=== PATIENT | female | born 1950 | race Caucasian/White ===

== ENCOUNTER 2019-12-28 09:02 | Inpatient (IN) | payer MEDICARE ==
[~2019-12-28] VITALS: Ht 154.9 cm; Wt 128.3 kg
[2019-12-28] MEDS ORDERED: ceFAZolin SODIUM IV Push 1 GM VIAL. IVP STA (09:20)
--- NOTE | 2019-12-28 09:27 | PHYS DOC ---
Adult General HPI HPI Patient is a 69 year old female who presents with R leg swelling and erythema that has been ongoing and progressively getting worse over the last several weeks. The patient has been having difficulty walking and denies fever, nausea, vomiting, or diarrhea. The patient states that her pain goes from 8 out of 10 down to 0 intermittently. The patient is a type II diabetic. Review of Systems Review of Systems Constitutional: Denies fever or chills [] Eyes: Denies change in visual acuity, redness, or eye pain [] HENT: Denies nasal congestion or sore throat [] Respiratory: Denies cough or shortness of breath [] Cardiovascular: No additional information not addressed in HPI [] GI: Denies abdominal pain, nausea, vomiting, bloody stools or diarrhea [] : Denies dysuria or hematuria [] Musculoskeletal: Denies back pain or joint pain [] Integument: Reports swelling to R leg with redness and pain. Neurologic: Denies headache, focal weakness or sensory changes [] Endocrine: Denies polyuria or polydipsia [] Complete systems were reviewed and found to be within normal limits, except as documented in this note. Current Medications Current Medications Current Medications Medications (Trade) Dose Ordered Sig/Mae Start Time Stop Time Status Last Admin Dose Admin Cefazolin Sodium (Ancef) 1 gm 1X STAT 12/28/19 09:20 12/28/19 10:13 DC 12/28/19 11:14 1 GM Allergies Allergies Allergies Coded Allergies Type Severity Reaction Last Updated Verified Penicillins Allergy Intermediate Itching 12/28/19 Yes sulfamethoxazole Allergy Intermediate "UPSET STOMACH" 12/28/19 Yes trimethoprim Allergy Intermediate "UPSET STOMACH" 12/28/19 Yes Physical Exam Physical Exam Constitutional: Well developed, well nourished, no acute distress, non-toxic appearance. [] HENT: Normocephalic, atraumatic, bilateral external ears normal, oropharynx moist, no oral exudates, nose normal. [] Eyes: PERRLA, EOMI, conjunctiva normal, no discharge. [] Neck: Normal range of motion, no tenderness, supple, no stridor. [] Cardiovascular:Heart rate regular rhythm, no murmur [] Lungs & Thorax: Bilateral breath sounds clear to auscultation [] Abdomen: Bowel sounds normal, soft, no tenderness, no masses, no pulsatile masses. [] Skin: See Note under extremities. Extremities: Severe edema to right lower extremity, with erythema posterior to knee, and distal on leg. Tenderness with palpation, pedal pulse is 1+. Neurologic: Alert and oriented X 3, normal motor function, normal sensory function, no focal deficits noted. [] Psychologic: Affect normal, judgement normal, mood normal. [] Current Patient Data Vital Signs Vital Signs Date Time Temp Pulse Resp B/P (MAP) Pulse Ox O2 Delivery O2 Flow Rate FiO2 12/28/19 09:08 98.9 95 20 192/74 (113) 97 Room Air 98.9 Lab Values Laboratory Tests Test 12/28/19 10:40 White Blood Count 7.6 x10^3/uL (4.0-11.0) Red Blood Count 3.47 x10^6/uL (3.50-5.40) L Hemoglobin 11.1 g/dL (12.0-15.5) L Hematocrit 32.4 % (36.0-47.0) L Mean Corpuscular Volume 93 fL (79-100) Mean Corpuscular Hemoglobin 32 pg (25-35) Mean Corpuscular Hemoglobin Concent 34 g/dL (31-37) Red Cell Distribution Width 15.4 % (11.5-14.5) H Platelet Count 150 x10^3/uL (140-400) Neutrophils (%) (Auto) 73 % (31-73) Lymphocytes (%) (Auto) 13 % (24-48) L Monocytes (%) (Auto) 13 % (0-9) H Eosinophils (%) (Auto) 1 % (0-3) Basophils (%) (Auto) 1 % (0-3) Neutrophils # (Auto) 5.6 x10^3/uL (1.8-7.7) Lymphocytes # (Auto) 1.0 x10^3/uL (1.0-4.8) Monocytes # (Auto) 0.9 x10^3/uL (0.0-1.1) Eosinophils # (Auto) 0.0 x10^3/uL (0.0-0.7) Basophils # (Auto) 0.0 x10^3/uL (0.0-0.2) Sodium Level 139 mmol/L (136-145) Potassium Level 3.5 mmol/L (3.5-5.1) Chloride Level 105 mmol/L (98-107) Carbon Dioxide Level 24 mmol/L (21-32) Anion Gap 10 (6-14) Blood Urea Nitrogen 27 mg/dL (7-20) H Creatinine 1.4 mg/dL (0.6-1.0) H Estimated GFR (Cockcroft-Gault) 37.1 BUN/Creatinine Ratio 19 (6-20) Glucose Level 155 mg/dL (70-99) H Lactic Acid Level 1.8 mmol/L (0.4-2.0) Calcium Level 8.4 mg/dL (8.5-10.1) L Total Bilirubin 1.8 mg/dL (0.2-1.0) H Aspartate Amino Transferase (AST) 40 U/L (15-37) H Alanine Aminotransferase (ALT) 25 U/L (14-59) Alkaline Phosphatase 67 U/L (46-116) Total Protein 6.1 g/dL (6.4-8.2) L Albumin 2.7 g/dL (3.4-5.0) L Albumin/Globulin Ratio 0.8 (1.0-1.7) L Laboratory Tests 12/28/19 10:40 Laboratory Tests 12/28/19 10:40 EKG EKG [] Radiology/Procedures Radiology/Procedures [][facility] [address] [place], [place] [id number] IMAGING REPORT Signed PATIENT: YESSY ROCHA ACCOUNT: [id number] : 1950 LOCATION: ER AGE: 69 SEX: F EXAM STATUS: REG ER ORD. PHYSICIAN: SHELBY CAR APRN REASON: R leg edema PROCEDURE: VENOUS LOWER EXTREMITY RIGHT Right lower extremity venous doppler ultrasound History: Right leg edema Comparison: None Findings: Multiple grayscale, color, and duplex spectral analysis sonographic images were acquired of the right lower extremity veins to evaluate for the presence of DVT. Exam is limited due to patient's body habitus. No convincing thrombus is demonstrated, normal color flow and phasicity. Compression images are very limited. There is edema of the soft tissues. Impression: 1. There is no convincing evidence of deep venous thrombosis from the right common femoral to the popliteal veins, exam limited due to patient's body habitus. Electronically signed by: Manjinder Clifford MD (12/28/2019 10:00 AM) [id number] DICTATED and SIGNED BY: MANJINDER CLIFFORD MD DATE: 12/28/19 1000 Course & Med Decision Making Course & Med Decision Making Pertinent Labs and Imaging studies reviewed. (See chart for details) Will get labs, ultrasound, and give Cefazolin. Ultrasound is unremarkable. Labs shows no acute changes. Will admit to hospitalist for cellulitis. Dr. Andrade agrees to admission. Dragon Disclaimer Dragon Disclaimer This electronic medical record was generated, in whole or in part, using a voice recognition dictation system. Departure Departure Impression: Primary Impression: Cellulitis Additional Impression: Acquired lymphedema of lower extremity Disposition: 09 ADMITTED INPATIENT Admitting Physician: KIMBERLY Condition: STABLE Referrals: UNKNOWN PCP NAME (PCP) Problem Qualifiers Primary Impression: Cellulitis Site of cellulitis: extremity Site of cellulitis of extremity: lower extremity Laterality: right Qualified Codes: L03.115 - Cellulitis of right lower limb SHELBY CAR APRN Dec 28, 2019 09:27
--- NOTE | 2019-12-28 10:02 | RAD ---
Right lower extremity venous doppler ultrasound History: Right leg edema Comparison: None Findings: Multiple grayscale, color, and duplex spectral analysis sonographic images were acquired of the right lower extremity veins to evaluate for the presence of DVT. Exam is limited due to patient's body habitus. No convincing thrombus is demonstrated, normal color flow and phasicity. Compression images are very limited. There is edema of the soft tissues. Impression: 1. There is no convincing evidence of deep venous thrombosis from the right common femoral to the popliteal veins, exam limited due to patient's body habitus. Electronically signed by: Hipolito Bai MD (12/28/2019 10:00 AM) [id number]
[2019-12-28 10:47] LABS: BASO % 1 % (0-3); EOS % 1 % (0-3); HEMATOCRIT 32.4 % (36.0-47.0); HEMOGLOBIN 11.1 g/dL (12.0-15.5); LYMPH % 13 % (24-48); MEAN CORPUSCULAR HEMOGLOBIN 32 pg (25-35); MEAN CORPUSCULAR HGB CONC 34 g/dL (31-37); MEAN CORPUSCULAR VOLUME 93 fL (79-100); MONO # 0.9 x10^3/uL (0.0-1.1); MONO % 13 % (0-9); NEUT # 5.6 x10^3/uL (1.8-7.7); NEUT % 73 % (31-73); PLATELET COUNT 150 x10^3/uL (140-400); RED BLOOD COUNT 3.47 x10^6/uL (3.50-5.40); RED CELL DISTRIBUTION WIDTH 15.4 % (11.5-14.5); WHITE BLOOD COUNT 7.6 x10^3/uL (4.0-11.0)
[2019-12-28 11:46] LABS: CALCIUM 8.4 mg/dL (8.5-10.1); CREATININE 1.4 mg/dL (0.6-1.0); GFR 37.1; POTASSIUM 3.5 mmol/L (3.5-5.1)
[2019-12-28 11:52] LABS: ALBUMIN 2.7 g/dL (3.4-5.0); ALBUMIN/GLOBULIN RATIO 0.8 (1.0-1.7); TOTAL BILIRUBIN 1.8 mg/dL (0.2-1.0); TOTAL PROTEIN 6.1 g/dL (6.4-8.2)
--- NOTE | 2019-12-28 12:23 | PDOC1 ---
History and Physical Date of Admission Date of Admission DATE: 12/28/19 TIME: 12:21 Identification/Chief Complaint Chief Complaint SEEN IN ER , 69 year old female who presents with R leg swelling and erythema that has been ongoing and progressively getting worse over the last several weeks. The patient has been having difficulty walking and denies fever, US NEG FOR DVT, LEFT LE HAS compression wrap in place, dry Past Medical History Past Medical History OBESITY Cardiovascular: HTN Family History Family History OBESITY Social History Smoke: No ALCOHOL: none Drugs: None Current Problem List Problem List Problems Medical Problems: (1) Acquired lymphedema of lower extremity Status: Acute (2) Cellulitis Status: Acute Current Medications Current Medications Current Medications Cefazolin Sodium (Ancef) 1 gm 1X STAT IVP Last administered on 12/28/19at 11:14; Start 12/28/19 at 09:20; Stop 12/28/19 at 10:13; Status DC Allergies Allergies: Coded Allergies: Penicillins (Verified Allergy, Intermediate, Itching, 12/28/19) sulfamethoxazole (Verified Allergy, Intermediate, "UPSET STOMACH" , 12/28/19) trimethoprim (Verified Allergy, Intermediate, "UPSET STOMACH" , 12/28/19) ROS Review of System Review of Systems Review of Systems Constitutional: Denies fever or chills [] Eyes: Denies change in visual acuity, redness, or eye pain [] HENT: Denies nasal congestion or sore throat [] Respiratory: Denies cough or shortness of breath [] Cardiovascular: No additional information not addressed in HPI [] GI: Denies abdominal pain, nausea, vomiting, bloody stools or diarrhea [] : Denies dysuria or hematuria [] Musculoskeletal: Denies back pain or joint pain [] Integument: Reports swelling to R leg with redness and pain. Neurologic: Denies headache, focal weakness or sensory changes [] Endocrine: Denies polyuria or polydipsia [] 14 PT systems were reviewed and found to be within normal limits, except as documented Gastrointestinal: No Nausea, No Vomiting, No Abdominal Pain, No Diarrhea, No Constipation, No Melena, No Hematochezia, No Other Musculoskeletal: Yes Joint Stiffness Skin: Yes Skin Lesion Changes Physical Exam Physical Exam Physical Exam Physical Exam Constitutional: Well developed, well nourished, no acute distress, non-toxic appearance. [] HENT: Normocephalic, atraumatic, bilateral external ears normal, oropharynx moist, no oral exudates, nose normal. [] Eyes: PERRLA, EOMI, conjunctiva normal, no discharge. [] Neck: Normal range of motion, no tenderness, supple, no stridor. [] Cardiovascular:Heart rate regular rhythm, no murmur [] Lungs & Thorax: Bilateral breath sounds clear to auscultation [] Abdomen: Bowel sounds normal, soft, no tenderness, no masses, no pulsatile masses. [] Skin: See Note under extremities. Extremities: Severe edema to right lower extremity, with erythema posterior to knee, and distal on leg. Tenderness with palpation, pedal pulse is 1+. Neurologic: Alert and oriented X 3, normal motor function, normal sensory function, no focal deficits noted. [] Psychologic: Affect normal, judgement normal, mood normal. [] General: Alert, Oriented X3, Cooperative, No acute distress HEENT: Atraumatic Heart: RRR Breasts: Not examined Abdomen: Normal bowel sounds, Soft Rectal Exam: deferred PELVIC: Examination not indicated Extremities: No cyanosis Neuro: Normal speech, Cranial nerves 3-12 NL Psych/Mental Status: Mental status NL, Mood NL Vitals Vitals Vital Signs Date Time Temp Pulse Resp B/P (MAP) Pulse Ox O2 Delivery O2 Flow Rate FiO2 12/28/19 09:08 98.9 95 20 192/74 (113) 97 Room Air 98.9 Labs Labs Laboratory Tests Test 12/28/19 10:40 White Blood Count 7.6 x10^3/uL (4.0-11.0) Red Blood Count 3.47 x10^6/uL (3.50-5.40) Hemoglobin 11.1 g/dL (12.0-15.5) Hematocrit 32.4 % (36.0-47.0) Mean Corpuscular Volume 93 fL (79-100) Mean Corpuscular Hemoglobin 32 pg (25-35) Mean Corpuscular Hemoglobin Concent 34 g/dL (31-37) Red Cell Distribution Width 15.4 % (11.5-14.5) Platelet Count 150 x10^3/uL (140-400) Neutrophils (%) (Auto) 73 % (31-73) Lymphocytes (%) (Auto) 13 % (24-48) Monocytes (%) (Auto) 13 % (0-9) Eosinophils (%) (Auto) 1 % (0-3) Basophils (%) (Auto) 1 % (0-3) Neutrophils # (Auto) 5.6 x10^3/uL (1.8-7.7) Lymphocytes # (Auto) 1.0 x10^3/uL (1.0-4.8) Monocytes # (Auto) 0.9 x10^3/uL (0.0-1.1) Eosinophils # (Auto) 0.0 x10^3/uL (0.0-0.7) Basophils # (Auto) 0.0 x10^3/uL (0.0-0.2) Sodium Level 139 mmol/L (136-145) Potassium Level 3.5 mmol/L (3.5-5.1) Chloride Level 105 mmol/L (98-107) Carbon Dioxide Level 24 mmol/L (21-32) Anion Gap 10 (6-14) Blood Urea Nitrogen 27 mg/dL (7-20) Creatinine 1.4 mg/dL (0.6-1.0) Estimated GFR (Cockcroft-Gault) 37.1 BUN/Creatinine Ratio 19 (6-20) Glucose Level 155 mg/dL (70-99) Lactic Acid Level 1.8 mmol/L (0.4-2.0) Calcium Level 8.4 mg/dL (8.5-10.1) Total Bilirubin 1.8 mg/dL (0.2-1.0) Aspartate Amino Transf (AST/SGOT) 40 U/L (15-37) Alanine Aminotransferase (ALT/SGPT) 25 U/L (14-59) Alkaline Phosphatase 67 U/L (46-116) Total Protein 6.1 g/dL (6.4-8.2) Albumin 2.7 g/dL (3.4-5.0) Albumin/Globulin Ratio 0.8 (1.0-1.7) Laboratory Tests Test 12/28/19 10:40 White Blood Count 7.6 x10^3/uL (4.0-11.0) Red Blood Count 3.47 x10^6/uL (3.50-5.40) Hemoglobin 11.1 g/dL (12.0-15.5) Hematocrit 32.4 % (36.0-47.0) Mean Corpuscular Volume 93 fL (79-100) Mean Corpuscular Hemoglobin 32 pg (25-35) Mean Corpuscular Hemoglobin Concent 34 g/dL (31-37) Red Cell Distribution Width 15.4 % (11.5-14.5) Platelet Count 150 x10^3/uL (140-400) Neutrophils (%) (Auto) 73 % (31-73) Lymphocytes (%) (Auto) 13 % (24-48) Monocytes (%) (Auto) 13 % (0-9) Eosinophils (%) (Auto) 1 % (0-3) Basophils (%) (Auto) 1 % (0-3) Neutrophils # (Auto) 5.6 x10^3/uL (1.8-7.7) Lymphocytes # (Auto) 1.0 x10^3/uL (1.0-4.8) Monocytes # (Auto) 0.9 x10^3/uL (0.0-1.1) Eosinophils # (Auto) 0.0 x10^3/uL (0.0-0.7) Basophils # (Auto) 0.0 x10^3/uL (0.0-0.2) Sodium Level 139 mmol/L (136-145) Potassium Level 3.5 mmol/L (3.5-5.1) Chloride Level 105 mmol/L (98-107) Carbon Dioxide Level 24 mmol/L (21-32) Anion Gap 10 (6-14) Blood Urea Nitrogen 27 mg/dL (7-20) Creatinine 1.4 mg/dL (0.6-1.0) Estimated GFR (Cockcroft-Gault) 37.1 BUN/Creatinine Ratio 19 (6-20) Glucose Level 155 mg/dL (70-99) Lactic Acid Level 1.8 mmol/L (0.4-2.0) Calcium Level 8.4 mg/dL (8.5-10.1) Total Bilirubin 1.8 mg/dL (0.2-1.0) Aspartate Amino Transf (AST/SGOT) 40 U/L (15-37) Alanine Aminotransferase (ALT/SGPT) 25 U/L (14-59) Alkaline Phosphatase 67 U/L (46-116) Total Protein 6.1 g/dL (6.4-8.2) Albumin 2.7 g/dL (3.4-5.0) Albumin/Globulin Ratio 0.8 (1.0-1.7) Images Images Right lower extremity venous doppler ultrasound History: Right leg edema Comparison: None Findings: Multiple grayscale, color, and duplex spectral analysis sonographic images were acquired of the right lower extremity veins to evaluate for the presence of DVT. Exam is limited due to patient's body habitus. No convincing thrombus is demonstrated, normal color flow and phasicity. Compression images are very limited. There is edema of the soft tissues. Impression: 1. There is no convincing evidence of deep venous thrombosis from the right common femoral to the popliteal veins, exam limited due to patient's body habitus. Electronically signed by: Manjinder Clifford MD (12/28/2019 10:00 AM) [id number] DICTATED and SIGNED BY: MANJINDER CLIFFORD MD DATE: 12/28/19 1000 VTE Prophylaxis Ordered VTE Prophylaxis Devices: Contraindicated VTE Pharmacological Prophylaxi: Yes Assessment/Plan Assessment/Plan Impression: krystyna: Cellulitis right lower leg, ankle obesity Acquired lymphedema of lower extremity///no convincing evidence of deep venous thrombosis from the right common femoral to the popliteal veins, exam limited due to patient's body habitus. severe protein-caloric malnutrition CKD stage 3 ADMITTED iv antibiotics ANCEF 1 GM Q 8 HRS dvt prophylaxis ID CONSULT AMBAR PARSONS MD Dec 28, 2019 12:23
[2019-12-28] MEDS ORDERED: fentaNYL PF VIAL 100 MCG/2 ML VIAL IV PRN (12:30)
[2019-12-28] MEDS ORDERED: ONDANSETRON PF 4 MG/2 ML VIAL. IV PRN ×2 (12:30→13:15)
[2019-12-28] MEDS ORDERED: ACETAMINOPHEN 325 MG TABLET. PO PRN (13:15)
[2019-12-28] MEDS ORDERED: ALBUTEROL SULFATE 2.5 MG/3 ML NEBU. NEB PRN (13:15)
[2019-12-28] MEDS ORDERED: guaiFENesin ORAL 200 MG/10 ML LIQUID. PO PRN (13:15)
[2019-12-28] MEDS ORDERED: cloNIDine HCL 0.1 MG TABLET PO PRN (13:15)
[2019-12-28] MEDS ORDERED: DOCUSATE SODIUM 100 MG CAPSULE. PO PRN (13:15)
[2019-12-28] MEDS ORDERED: 0.9 % SODIUM CHLORIDE 10 ML DISP.SYRIN. IV PRN (13:15)
[2019-12-28] MEDS ORDERED: ceFAZolin SODIUM IV Push 1 GM VIAL. IVP SCH (14:00)
[2019-12-28] MEDS: IV NORMAL SALINE 1000ML BAG 1,000 ML IV SCH (14:50)
[2019-12-28] MEDS: ENOXAPARIN 40 MG/0.4 ML SYRINGE. SQ SCH (14:50)
[2019-12-28 19:25] VITALS: BP 109/46
[2019-12-28] MEDS: NYSTATIN TOPICAL POWDER 15GM BOTTLE. TP SCH (22:37)
[2019-12-28] MEDS: ceFAZolin SODIUM IV Push 1 GM VIAL. IVP SCH (22:38)
[2019-12-28 23:25] VITALS: BP 122/50
[2019-12-29 03:25] VITALS: BP 115/52
[2019-12-29] MEDS: IV NORMAL SALINE 1000ML BAG 1,000 ML IV SCH ×2 (03:40→16:48)
[2019-12-29 04:59] LABS: BILIRUBIN,URINE NEGATIVE (NEG); CLARITY,URINE CLEAR; COLOR,URINE YELLOW; NITRITE,URINE NEGATIVE (NEG); PH,URINE 5.5; PROTEIN,URINE NEGATIVE (NEG-TRACE); UROBILINOGEN,URINE 0.2 mg/dL (0.2 mg/dL)
[2019-12-29 05:03] LABS: SQUAMOUS EPITHELIAL CELL,UR MOD /LPF
[2019-12-29 05:04] LABS: BACTERIA,URINE FEW /HPF (0-FEW); RBC,URINE 0 /HPF (0-2)
[2019-12-29] MEDS: ceFAZolin SODIUM IV Push 1 GM VIAL. IVP SCH (05:45)
[2019-12-29 07:00] VITALS: BP 114/52
[2019-12-29 07:32] LABS: BASO % 1 % (0-3); EOS # 0.2 x10^3/uL (0.0-0.7); EOS % 4 % (0-3); HEMATOCRIT 29.2 % (36.0-47.0); LYMPH % 21 % (24-48); MEAN CORPUSCULAR HEMOGLOBIN 32 pg (25-35); MEAN CORPUSCULAR HGB CONC 34 g/dL (31-37); MEAN CORPUSCULAR VOLUME 94 fL (79-100); MONO # 0.6 x10^3/uL (0.0-1.1); MONO % 13 % (0-9); NEUT # 3.1 x10^3/uL (1.8-7.7); NEUT % 62 % (31-73); PLATELET COUNT 127 x10^3/uL (140-400); RED BLOOD COUNT 3.12 x10^6/uL (3.50-5.40); RED CELL DISTRIBUTION WIDTH 15.5 % (11.5-14.5); WHITE BLOOD COUNT 4.9 x10^3/uL (4.0-11.0)
[2019-12-29 07:46] LABS: CALCIUM 7.7 mg/dL (8.5-10.1); CREATININE 1.2 mg/dL (0.6-1.0); GFR 44.3; POTASSIUM 3.3 mmol/L (3.5-5.1)
[2019-12-29] MEDS: NYSTATIN TOPICAL POWDER 15GM BOTTLE. TP SCH ×2 (08:03→21:36)
--- NOTE | 2019-12-29 10:52 | PDOC ---
Infectious Disease Note Vital Sign Vital Signs Vital Signs Date Time Temp Pulse Resp B/P (MAP) Pulse Ox O2 Delivery O2 Flow Rate FiO2 12/29/19 08:10 Room Air 12/29/19 07:00 97.5 82 16 114/52 (72) 95 97.5 Labs Lab Laboratory Tests Test 12/28/19 17:57 12/28/19 20:53 12/29/19 04:30 12/29/19 06:20 Glucose (Fingerstick) 161 mg/dL (70-99) 150 mg/dL (70-99) Urine Collection Type Unknown Urine Color Yellow Urine Clarity Clear Urine pH 5.5 Urine Specific [place] 1.020 Urine Protein Negative mg/dL (NEG-TRACE) Urine Glucose (UA) >=1000 mg/dL (NEG) Urine Ketones (Stick) Negative mg/dL (NEG) Urine Blood Negative (NEG) Urine Nitrite Negative (NEG) Urine Bilirubin Negative (NEG) Urine Urobilinogen Dipstick 0.2 mg/dL (0.2 mg/dL) Urine Leukocyte Esterase Small (NEG) Urine RBC 0 /HPF (0-2) Urine WBC 1-4 /HPF (0-4) Urine Squamous Epithelial Cells Mod /LPF Urine Bacteria Few /HPF (0-FEW) Urine Mucus Slight /LPF White Blood Count 4.9 x10^3/uL (4.0-11.0) Red Blood Count 3.12 x10^6/uL (3.50-5.40) Hemoglobin 10.0 g/dL (12.0-15.5) Hematocrit 29.2 % (36.0-47.0) Mean Corpuscular Volume 94 fL (79-100) Mean Corpuscular Hemoglobin 32 pg (25-35) Mean Corpuscular Hemoglobin Concent 34 g/dL (31-37) Red Cell Distribution Width 15.5 % (11.5-14.5) Platelet Count 127 x10^3/uL (140-400) Neutrophils (%) (Auto) 62 % (31-73) Lymphocytes (%) (Auto) 21 % (24-48) Monocytes (%) (Auto) 13 % (0-9) Eosinophils (%) (Auto) 4 % (0-3) Basophils (%) (Auto) 1 % (0-3) Neutrophils # (Auto) 3.1 x10^3/uL (1.8-7.7) Lymphocytes # (Auto) 1.0 x10^3/uL (1.0-4.8) Monocytes # (Auto) 0.6 x10^3/uL (0.0-1.1) Eosinophils # (Auto) 0.2 x10^3/uL (0.0-0.7) Basophils # (Auto) 0.0 x10^3/uL (0.0-0.2) Sodium Level 143 mmol/L (136-145) Potassium Level 3.3 mmol/L (3.5-5.1) Chloride Level 110 mmol/L (98-107) Carbon Dioxide Level 26 mmol/L (21-32) Anion Gap 7 (6-14) Blood Urea Nitrogen 25 mg/dL (7-20) Creatinine 1.2 mg/dL (0.6-1.0) Estimated GFR (Cockcroft-Gault) 44.3 Glucose Level 133 mg/dL (70-99) Calcium Level 7.7 mg/dL (8.5-10.1) Test 12/29/19 07:51 Glucose (Fingerstick) 118 mg/dL (70-99) Objective Assessment LE cellulitis R> Left Abx allergies - PCN - rash uncertain if had Amox/Bactrim - nausea H/o MSSA Yeast in groin and feet Abnormal UA - asymptomatic Cat exposure LE Lymphedema RASTA Morbid obesity Plan Plan of Care Discont Cefazolin dose Rocephin Dose Doxy/Diflucan F/u Urine cult but ? contaminated Elevation and local wound care Thank you # [id number] SKIP FARIAS MD Dec 29, 2019 10:52
[2019-12-29] MEDS: cefTRIAXone IV Push 1 GM VIAL. IVP SCH (11:00)
[2019-12-29] MEDS: DOXYCYCLINE HYCLATE 100 MG TABLET PO SCH ×2 (11:14→21:36)
[2019-12-29] MEDS: FLUCONAZOLE 100 MG TABLET. PO SCH (11:14)
--- NOTE | 2019-12-29 11:52 | NUR ---
SW following. Discussed with RN, pt from home alone. Per RN, pt has not moved much today. PT/OT ordered. SW will continue to follow for any discharge planning needs.
[2019-12-29 12:00] VITALS: BP 106/47
--- NOTE | 2019-12-29 13:02 | PDOC ---
PROGRESS NOTES Chief Complaint Chief Complaint sepsis acute Cellulitis right lower leg, ankle morbid obesity , BMI 44 Acquired lymphedema of lower extremity/ serum hypoalbumin, protein-caloric malnutrition CKD stage 3 History of Present Illness History of Present Illness ID following abx changed she is very weak pt and ot and lymphedema therapy Vitals Vitals Vital Signs Date Time Temp Pulse Resp B/P (MAP) Pulse Ox O2 Delivery O2 Flow Rate FiO2 12/29/19 12:00 99.9 83 16 106/47 (66) 96 Room Air 99.9 Physical Exam General: Alert, Oriented X3, Cooperative, No acute distress Abdomen: Normal bowel sounds, Soft Extremities: No cyanosis Labs LABS Laboratory Tests Test 12/28/19 17:57 12/28/19 20:53 12/29/19 04:30 12/29/19 06:20 Glucose (Fingerstick) 161 mg/dL (70-99) 150 mg/dL (70-99) Urine Collection Type Unknown Urine Color Yellow Urine Clarity Clear Urine pH 5.5 Urine Specific Elmer 1.020 Urine Protein Negative mg/dL (NEG-TRACE) Urine Glucose (UA) >=1000 mg/dL (NEG) Urine Ketones (Stick) Negative mg/dL (NEG) Urine Blood Negative (NEG) Urine Nitrite Negative (NEG) Urine Bilirubin Negative (NEG) Urine Urobilinogen Dipstick 0.2 mg/dL (0.2 mg/dL) Urine Leukocyte Esterase Small (NEG) Urine RBC 0 /HPF (0-2) Urine WBC 1-4 /HPF (0-4) Urine Squamous Epithelial Cells Mod /LPF Urine Bacteria Few /HPF (0-FEW) Urine Mucus Slight /LPF White Blood Count 4.9 x10^3/uL (4.0-11.0) Red Blood Count 3.12 x10^6/uL (3.50-5.40) Hemoglobin 10.0 g/dL (12.0-15.5) Hematocrit 29.2 % (36.0-47.0) Mean Corpuscular Volume 94 fL (79-100) Mean Corpuscular Hemoglobin 32 pg (25-35) Mean Corpuscular Hemoglobin Concent 34 g/dL (31-37) Red Cell Distribution Width 15.5 % (11.5-14.5) Platelet Count 127 x10^3/uL (140-400) Neutrophils (%) (Auto) 62 % (31-73) Lymphocytes (%) (Auto) 21 % (24-48) Monocytes (%) (Auto) 13 % (0-9) Eosinophils (%) (Auto) 4 % (0-3) Basophils (%) (Auto) 1 % (0-3) Neutrophils # (Auto) 3.1 x10^3/uL (1.8-7.7) Lymphocytes # (Auto) 1.0 x10^3/uL (1.0-4.8) Monocytes # (Auto) 0.6 x10^3/uL (0.0-1.1) Eosinophils # (Auto) 0.2 x10^3/uL (0.0-0.7) Basophils # (Auto) 0.0 x10^3/uL (0.0-0.2) Sodium Level 143 mmol/L (136-145) Potassium Level 3.3 mmol/L (3.5-5.1) Chloride Level 110 mmol/L (98-107) Carbon Dioxide Level 26 mmol/L (21-32) Anion Gap 7 (6-14) Blood Urea Nitrogen 25 mg/dL (7-20) Creatinine 1.2 mg/dL (0.6-1.0) Estimated GFR (Cockcroft-Gault) 44.3 Glucose Level 133 mg/dL (70-99) Calcium Level 7.7 mg/dL (8.5-10.1) Test 12/29/19 07:51 12/29/19 11:42 Glucose (Fingerstick) 118 mg/dL (70-99) 175 mg/dL (70-99) Assessment and Plan Assessmemt and Plan Problems Medical Problems: (1) Acquired lymphedema of lower extremity Status: Acute (2) Cellulitis Status: Acute Comment Review of Relevant I have reviewed the following items ayden (where applicable) has been applied. Labs Laboratory Tests Test 12/28/19 10:40 12/28/19 17:57 12/28/19 20:53 12/29/19 04:30 White Blood Count 7.6 x10^3/uL (4.0-11.0) Red Blood Count 3.47 x10^6/uL (3.50-5.40) Hemoglobin 11.1 g/dL (12.0-15.5) Hematocrit 32.4 % (36.0-47.0) Mean Corpuscular Volume 93 fL (79-100) Mean Corpuscular Hemoglobin 32 pg (25-35) Mean Corpuscular Hemoglobin Concent 34 g/dL (31-37) Red Cell Distribution Width 15.4 % (11.5-14.5) Platelet Count 150 x10^3/uL (140-400) Neutrophils (%) (Auto) 73 % (31-73) Lymphocytes (%) (Auto) 13 % (24-48) Monocytes (%) (Auto) 13 % (0-9) Eosinophils (%) (Auto) 1 % (0-3) Basophils (%) (Auto) 1 % (0-3) Neutrophils # (Auto) 5.6 x10^3/uL (1.8-7.7) Lymphocytes # (Auto) 1.0 x10^3/uL (1.0-4.8) Monocytes # (Auto) 0.9 x10^3/uL (0.0-1.1) Eosinophils # (Auto) 0.0 x10^3/uL (0.0-0.7) Basophils # (Auto) 0.0 x10^3/uL (0.0-0.2) Sodium Level 139 mmol/L (136-145) Potassium Level 3.5 mmol/L (3.5-5.1) Chloride Level 105 mmol/L (98-107) Carbon Dioxide Level 24 mmol/L (21-32) Anion Gap 10 (6-14) Blood Urea Nitrogen 27 mg/dL (7-20) Creatinine 1.4 mg/dL (0.6-1.0) Estimated GFR (Cockcroft-Gault) 37.1 BUN/Creatinine Ratio 19 (6-20) Glucose Level 155 mg/dL (70-99) Lactic Acid Level 1.8 mmol/L (0.4-2.0) Calcium Level 8.4 mg/dL (8.5-10.1) Total Bilirubin 1.8 mg/dL (0.2-1.0) Aspartate Amino Transf (AST/SGOT) 40 U/L (15-37) Alanine Aminotransferase (ALT/SGPT) 25 U/L (14-59) Alkaline Phosphatase 67 U/L (46-116) Total Protein 6.1 g/dL (6.4-8.2) Albumin 2.7 g/dL (3.4-5.0) Albumin/Globulin Ratio 0.8 (1.0-1.7) Glucose (Fingerstick) 161 mg/dL (70-99) 150 mg/dL (70-99) Urine Collection Type Unknown Urine Color Yellow Urine Clarity Clear Urine pH 5.5 Urine Specific Elmer 1.020 Urine Protein Negative mg/dL (NEG-TRACE) Urine Glucose (UA) >=1000 mg/dL (NEG) Urine Ketones (Stick) Negative mg/dL (NEG) Urine Blood Negative (NEG) Urine Nitrite Negative (NEG) Urine Bilirubin Negative (NEG) Urine Urobilinogen Dipstick 0.2 mg/dL (0.2 mg/dL) Urine Leukocyte Esterase Small (NEG) Urine RBC 0 /HPF (0-2) Urine WBC 1-4 /HPF (0-4) Urine Squamous Epithelial Cells Mod /LPF Urine Bacteria Few /HPF (0-FEW) Urine Mucus Slight /LPF Test 12/29/19 06:20 12/29/19 07:51 12/29/19 11:42 White Blood Count 4.9 x10^3/uL (4.0-11.0) Red Blood Count 3.12 x10^6/uL (3.50-5.40) Hemoglobin 10.0 g/dL (12.0-15.5) Hematocrit 29.2 % (36.0-47.0) Mean Corpuscular Volume 94 fL (79-100) Mean Corpuscular Hemoglobin 32 pg (25-35) Mean Corpuscular Hemoglobin Concent 34 g/dL (31-37) Red Cell Distribution Width 15.5 % (11.5-14.5) Platelet Count 127 x10^3/uL (140-400) Neutrophils (%) (Auto) 62 % (31-73) Lymphocytes (%) (Auto) 21 % (24-48) Monocytes (%) (Auto) 13 % (0-9) Eosinophils (%) (Auto) 4 % (0-3) Basophils (%) (Auto) 1 % (0-3) Neutrophils # (Auto) 3.1 x10^3/uL (1.8-7.7) Lymphocytes # (Auto) 1.0 x10^3/uL (1.0-4.8) Monocytes # (Auto) 0.6 x10^3/uL (0.0-1.1) Eosinophils # (Auto) 0.2 x10^3/uL (0.0-0.7) Basophils # (Auto) 0.0 x10^3/uL (0.0-0.2) Sodium Level 143 mmol/L (136-145) Potassium Level 3.3 mmol/L (3.5-5.1) Chloride Level 110 mmol/L (98-107) Carbon Dioxide Level 26 mmol/L (21-32) Anion Gap 7 (6-14) Blood Urea Nitrogen 25 mg/dL (7-20) Creatinine 1.2 mg/dL (0.6-1.0) Estimated GFR (Cockcroft-Gault) 44.3 Glucose Level 133 mg/dL (70-99) Calcium Level 7.7 mg/dL (8.5-10.1) Glucose (Fingerstick) 118 mg/dL (70-99) 175 mg/dL (70-99) Laboratory Tests Test 12/28/19 17:57 12/28/19 20:53 12/29/19 04:30 12/29/19 06:20 Glucose (Fingerstick) 161 mg/dL (70-99) 150 mg/dL (70-99) Urine Collection Type Unknown Urine Color Yellow Urine Clarity Clear Urine pH 5.5 Urine Specific Elmer 1.020 Urine Protein Negative mg/dL (NEG-TRACE) Urine Glucose (UA) >=1000 mg/dL (NEG) Urine Ketones (Stick) Negative mg/dL (NEG) Urine Blood Negative (NEG) Urine Nitrite Negative (NEG) Urine Bilirubin Negative (NEG) Urine Urobilinogen Dipstick 0.2 mg/dL (0.2 mg/dL) Urine Leukocyte Esterase Small (NEG) Urine RBC 0 /HPF (0-2) Urine WBC 1-4 /HPF (0-4) Urine Squamous Epithelial Cells Mod /LPF Urine Bacteria Few /HPF (0-FEW) Urine Mucus Slight /LPF White Blood Count 4.9 x10^3/uL (4.0-11.0) Red Blood Count 3.12 x10^6/uL (3.50-5.40) Hemoglobin 10.0 g/dL (12.0-15.5) Hematocrit 29.2 % (36.0-47.0) Mean Corpuscular Volume 94 fL (79-100) Mean Corpuscular Hemoglobin 32 pg (25-35) Mean Corpuscular Hemoglobin Concent 34 g/dL (31-37) Red Cell Distribution Width 15.5 % (11.5-14.5) Platelet Count 127 x10^3/uL (140-400) Neutrophils (%) (Auto) 62 % (31-73) Lymphocytes (%) (Auto) 21 % (24-48) Monocytes (%) (Auto) 13 % (0-9) Eosinophils (%) (Auto) 4 % (0-3) Basophils (%) (Auto) 1 % (0-3) Neutrophils # (Auto) 3.1 x10^3/uL (1.8-7.7) Lymphocytes # (Auto) 1.0 x10^3/uL (1.0-4.8) Monocytes # (Auto) 0.6 x10^3/uL (0.0-1.1) Eosinophils # (Auto) 0.2 x10^3/uL (0.0-0.7) Basophils # (Auto) 0.0 x10^3/uL (0.0-0.2) Sodium Level 143 mmol/L (136-145) Potassium Level 3.3 mmol/L (3.5-5.1) Chloride Level 110 mmol/L (98-107) Carbon Dioxide Level 26 mmol/L (21-32) Anion Gap 7 (6-14) Blood Urea Nitrogen 25 mg/dL (7-20) Creatinine 1.2 mg/dL (0.6-1.0) Estimated GFR (Cockcroft-Gault) 44.3 Glucose Level 133 mg/dL (70-99) Calcium Level 7.7 mg/dL (8.5-10.1) Test 12/29/19 07:51 12/29/19 11:42 Glucose (Fingerstick) 118 mg/dL (70-99) 175 mg/dL (70-99) Microbiology 12/28/19 Blood Culture - Preliminary, Resulted NO GROWTH AFTER 1 DAY Medications Current Medications Cefazolin Sodium (Ancef) 1 gm 1X STAT IVP Last administered on 12/28/19at 11:14; Start 12/28/19 at 09:20; Stop 12/28/19 at 10:13; Status DC Ondansetron HCl (Zofran) 4 mg PRN Q8HRS PRN IV NAUSEA/VOMITING; Start 12/28/19 at 12:30; Stop 12/29/19 at 10:43; Status DC Fentanyl Citrate (Fentanyl 2ml Vial) 50 mcg PRN Q1HR PRN IV PAIN; Start 12/28/19 at 12:30; Stop 12/29/19 at 12:29; Status DC Cefazolin Sodium/ Dextrose 50 ml @ 100 mls/hr Q8HRS IV ; Start 12/28/19 at 14:00; Status UNV Cefazolin Sodium (Ancef) 1 gm Q8HRS IVP ; Start 12/28/19 at 14:00; Stop 12/28/19 at 18:52; Status DC Sodium Chloride (Normal Saline Flush) 3 ml QSHIFT PRN IV AFTER MEDS AND BLOOD DRAWS; Start 12/28/19 at 13:15 Sodium Chloride 1,000 ml @ 70 mls/hr [id number] IV Last administered on 12/29/19at 03:40; Start 12/28/19 at 13:04 Ondansetron HCl (Zofran) 4 mg PRN Q4HRS PRN IV NAUSEA/VOMITING; Start 12/28/19 at 13:15 Acetaminophen (Tylenol) 650 mg PRN Q4HRS PRN PO TEMP OVER 100.4F OR MILD PAIN; Start 12/28/19 at 13:15 Clonidine HCl (Catapres) 0.1 mg PRN Q6HRS PRN PO SBP>160 OR DBP>90; Start 12/28/19 at 13:15 Docusate Sodium (Colace) 100 mg PRN BID PRN PO CONSTIPATION; Start 12/28/19 at 13:15 Albuterol Sulfate (Ventolin Neb Soln) 2.5 mg PRN Q4HRS PRN NEB SHORTNESS OF BREATH; Start 12/28/19 at 13:15 Guaifenesin (Robitussin) 200 mg PRN Q4HRS PRN PO COUGH; Start 12/28/19 at 13:15 Enoxaparin Sodium (Lovenox 40mg Syringe) 40 mg Q24H SQ Last administered on 12/28/19at 14:50; Start 12/28/19 at 14:00 Nystatin (Nystop) 1 soni BID TP Last administered on 12/28/19at 22:37; Start at 21:00 Cefazolin Sodium (Ancef) 1 gm Q8HRS IVP Last administered on 12/29/19at 05:45; Start 12/28/19 at 20:00; Stop 12/29/19 at 10:51; Status DC Fluconazole (Diflucan) 100 mg DAILY PO Last administered on 12/29/19at 11:14; Start 12/29/19 at 12:00 Doxycycline Hyclate (Vibra-Tab) 100 mg BID PO Last administered on 12/29/19at 11:14; Start 12/29/19 at 12:00 Ceftriaxone Sodium (Rocephin) 1 gm Q24H IVP Last administered on 12/29/19at 11:00; Start 12/29/19 at 11:00 Vitals/I & O Vital Sign - Last 24 Hours 12/28/19 12/28/19 12/28/19 12/28/19 13:07 13:37 14:07 14:37 Pulse 78 80 91 80 Resp 20 22 21 B/P (MAP) 112/56 (74) 122/59 (80) 136/64 (88) 111/54 (73) Pulse Ox 96 99 O2 Delivery Room Air Room Air Room Air Room Air 12/28/19 12/28/19 12/28/19 12/28/19 15:00 15:30 16:00 19:25 Temp 98.3 98.3 Pulse 80 84 94 86 Resp 21 17 B/P (MAP) 119/56 (77) 135/61 (85) 137/60 (85) 109/46 (67) Pulse Ox 96 89 96 O2 Delivery Room Air Room Air Room Air Room Air 12/28/19 12/29/19 12/29/19 12/29/19 23:25 03:25 07:00 08:10 Temp 99.2 98.7 97.5 99.2 98.7 97.5 Pulse 81 80 82 Resp 17 17 16 B/P (MAP) 122/50 (74) 115/52 (73) 114/52 (72) Pulse Ox 98 99 95 O2 Delivery Room Air Room Air Room Air Room Air 12/29/19 12:00 Temp 99.9 99.9 Pulse 83 Resp 16 B/P (MAP) 106/47 (66) Pulse Ox 96 O2 Delivery Room Air Intake and Output 12/28/19 12/28/19 12/29/19 15:00 23:00 07:00 Intake Total 150 ml Balance 150 ml JAMES COREAS MD Dec 29, 2019 13:02
--- NOTE | 2019-12-29 13:23 | CONS ---
DATE OF CONSULTATION: 12/29/2019 LOCATION: The patient is in room #430. REQUESTING PHYSICIAN: Raymond Andrade MD REASON FOR CONSULTATION: Right lower extremity cellulitis. HISTORY OF PRESENT ILLNESS: The patient is a pleasant 69-year-old female with history of morbid obesity, longstanding lymphedema with a history of MSSA cellulitis. She states, about 3 weeks ago, she began to have swelling in her legs that worsened over time, right leg greater than left. She states that she would try to clean the area with soap and water and dressed the area; however, she worsened over several days with more erythema and difficulty walking. She did not have any fevers or chills or sweats. No headache, sore throat, cough, chest pain, nausea, vomiting, diarrhea, dysuria, frequency, or urgency. She presented to [facility], placed on cefazolin and admitted to the hospital. Currently, the patient also has acute kidney injury and had a Alcala placed. She underwent ultrasound of her right lower extremity that was negative for any DVT. Currently, she is feeling better. PAST MEDICAL HISTORY: Positive for MSSA, history of cellulitis she states, history of morbid obesity, lymphedema, leukemia treated by Dr. Brown in 2011 and 2013, history of DVT. REVIEW OF SYSTEMS: Otherwise negative. ALLERGIES: LISTED PENICILLIN, SHE BELIEVES CAUSE RASH. She is uncertain if she has ever had amoxicillin, BACTRIM CAUSES NAUSEA. SOCIAL HISTORY: She does have a cat at home. No alcohol or tobacco. FAMILY HISTORY: Positive for obesity. CURRENT MEDICATIONS: Include cefazolin, albuterol, clonidine, Colace, Lovenox, topical nystatin. PHYSICAL EXAMINATION: VITAL SIGNS: Afebrile, temperature 97.5, pulse 82, respirations 16, blood pressure 114/52, satting 95% on room air. CONSTITUTIONAL: She is alert, cooperative, in no acute distress. She is lying in bed. She was sleeping on arrival, but awakened. HEENT: Pupils equal and reactive. Normal conjunctivae. Oral cavity, pharynx is clear. NECK: Supple. Good range of motion. LUNGS: Clear to auscultation. HEART: S1, S2. ABDOMEN: Morbidly obese, soft, positive bowel sounds, no guarding or rebound. EXTREMITIES: No clubbing, cyanosis. She has chronic changes of her lower extremities. She has 1 to 2+ lower extremity edema bilaterally. She has bands of erythema about both lower third of her tibial area and some mild erythema on the medial aspect of her right leg. There is trace warmth, but there is no pain, there is no tenderness. There is no guarding. There are no open wounds. GENITOURINARY: She has a Alcala in place. SKIN: Without generalized signs of rash, but she does have yeast on her feet as well as in her groin area. NEUROLOGIC: She is nonfocal. PSYCHIATRIC: Affect is appropriate. LABORATORY DATA: White count 4.9, hemoglobin 10, platelets of 62, lymphs are 21. Creatinine of 1.2, 1.4 on arrival. AST 40, ALT was 25. Urinalysis had moderate squamous cells, 1-4 wbc's, few bacteria, nitrite negative, leukocyte esterase small. IMAGING DATA: Radiology again negative for DVT. IMPRESSION: 1. Left lower extremity cellulitis, right greater than left. 2. ANTIBIOTIC ALLERGIES, PENICILLIN CAUSES A RASH, uncertain if she has had amoxicillin, BACTRIM CAUSES NAUSEA. 3. History of methicillin-sensitive Staphylococcus aureus. 4. Yeast in the groin. 5. Abnormal urinalysis, asymptomatic. 6. Cat exposure. 7. Lower extremity lymphedema. 8. Acute kidney injury. 9. Morbid obesity. RECOMMENDATIONS: We will discontinue cefazolin just because of her questionable UA. We will broaden out to Rocephin, also doxycycline with cat exposure, Diflucan with her yeast. We will follow up on urine culture, but again it may be contaminated with epithelial cells; however, squamous cells present. Also, she needs elevation and local wound care. Thank you for allowing us to participate in the patient's care. Should you have any questions, please do not hesitate to contact me. SKIP FARIAS MD DR: DUONG/chan JOB#: [id number] / [id number]
--- NOTE | 2019-12-29 14:39 | NUR ---
P[address] delivered and [address] in patients room
[2019-12-29] MEDS: ENOXAPARIN 40 MG/0.4 ML SYRINGE. SQ SCH (14:41)
[2019-12-29 15:00] VITALS: BP 115/44
--- NOTE | 2019-12-29 15:58 | NUR ---
Wound Care Wound care consult for multiple wounds. Pt has yeast rash under right pannus and on coccyx with intertrigo. Cleansed areas and nystatin powder applied. Pt has small skin tear to posterior right thigh, nystatin powder applied. Pt has cellulitis to right lower leg with ulcer to posterior calf. Cleansed wound and dressed with contact layer and ABD pad and Kerlix. Recommend to change every 2-3 days. Pt has P500 bed in room. Left in chair for dinner. No other wounds noted. WC will continue ot follow for possible changes. Educated pt on leg elevation to prevent swelling and PU prevention, pt v/u of teaching.
[2019-12-29 19:00] VITALS: BP 107/48
[2019-12-29] MEDS: LACTOBACILLUS RHAMNOSUS GG 1 CAPSULE. PO SCH (21:36)
[2019-12-29 23:00] VITALS: BP 127/61
[2019-12-30 03:00] VITALS: BP 125/57
[2019-12-30] MEDS: IV NORMAL SALINE 1000ML BAG 1,000 ML IV SCH (06:14)
[2019-12-30 07:15] VITALS: BP 126/53
[2019-12-30] MEDS: NYSTATIN TOPICAL POWDER 15GM BOTTLE. TP SCH ×2 (08:36→21:49)
[2019-12-30] MEDS: FLUCONAZOLE 100 MG TABLET. PO SCH (08:36)
[2019-12-30] MEDS: LACTOBACILLUS RHAMNOSUS GG 1 CAPSULE. PO SCH ×2 (08:36→21:47)
[2019-12-30] MEDS: DOXYCYCLINE HYCLATE 100 MG TABLET PO SCH ×2 (08:36→21:47)
--- NOTE | 2019-12-30 09:10 | PDOC ---
Infectious Disease Note Subjective Subjective Better. Leg is doing well with dressing No F/C/S/N/V/D/SOA/rash ROS ROS o/w neg Vital Sign Vital Signs Vital Signs Date Time Temp Pulse Resp B/P (MAP) Pulse Ox O2 Delivery O2 Flow Rate FiO2 12/30/19 07:47 Room Air 12/30/19 07:15 98.4 90 20 126/53 (77) 99 98.4 Physical Exam PHYSICAL EXAM CONSTITUTIONAL: She is alert, cooperative, in no acute distress. She is lying in bed. She was sleeping on arrival, but awakened. HEENT: Pupils equal and reactive. Normal conjunctivae. Oral cavity, pharynx is clear. NECK: Supple. Good range of motion. LUNGS: Clear to auscultation. HEART: S1, S2. ABDOMEN: Morbidly obese, soft, positive bowel sounds, no guarding or rebound. EXTREMITIES: No clubbing, cyanosis. She has chronic changes of her lower extremities. She has 1 + lower extremity edema bilaterally. She has bands of erythema about both lower third of her tibial area and some mild erythema on the medial aspect of her right leg. There is trace warmth, but there is no pain, there is no tenderness. There is no guarding. There are no open wounds. GENITOURINARY: She has a Alcala in place. SKIN: Without generalized signs of rash, but she does have yeast on her feet as well as in her groin area. NEUROLOGIC: She is nonfocal. PSYCHIATRIC: Affect is appropriate. Labs Lab Laboratory Tests Test 12/29/19 11:42 12/29/19 20:26 12/30/19 07:02 Glucose (Fingerstick) 175 mg/dL (70-99) 176 mg/dL (70-99) 139 mg/dL (70-99) Micro Microbiology 12/28/19 Blood Culture - Preliminary, Resulted NO GROWTH AFTER 1 DAY Objective Assessment LE cellulitis R> Left Abx allergies - PCN - rash uncertain if had Amox/Bactrim - nausea H/o MSSA Yeast in groin and feet Abnormal UA - asymptomatic Cat exposure LE Lymphedema RASTA Morbid obesity Plan Plan of Care Discont Cefazolin dose Rocephin 12/29 Dosed Doxy/Diflucan 12/29 F/u Urine cult but ? contaminated Elevation and local wound care SKIP FARIAS MD Dec 30, 2019 09:10
[2019-12-30 11:00] VITALS: BP 131/53
[2019-12-30] MEDS: cefTRIAXone IV Push 1 GM VIAL. IVP SCH (11:21)
--- NOTE | 2019-12-30 12:00 | NUR ---
GUERLINE following. Discussed with RN, pt from home alone. GUERLINE met with pt, pt is from home alone. Pt is agreeable to SNU. Pt would like referral sent to [facility]. GUERLINE phoned and faxed referral, awaiting acceptance decision and insurance auth. GUERLINE will continue to follow. THI notified. Addendum: 12/30/19 at 1427 by SINAN CUNHA Pt accepted at [facility], pending insurance. THI notified.
--- NOTE | 2019-12-30 13:14 | PDOC ---
PROGRESS NOTES Chief Complaint Chief Complaint sepsis acute Cellulitis right lower leg, ankle morbid obesity , BMI 44 Acquired lymphedema of lower extremity/ serum hypoalbumin, protein-caloric malnutrition CKD stage 3 History of Present Illness History of Present Illness she is still very weak, will need snu pt and ot and lymphedema therapy Vitals Vitals Vital Signs Date Time Temp Pulse Resp B/P (MAP) Pulse Ox O2 Delivery O2 Flow Rate FiO2 12/30/19 11:00 98.3 83 20 131/53 (79) 97 Room Air 98.3 Physical Exam Physical Exam CONSTITUTIONAL: She is alert, cooperative, in no acute distress. She is lying in bed. She was sleeping on arrival, but awakened. HEENT: Pupils equal and reactive. Normal conjunctivae. Oral cavity, pharynx is clear. NECK: Supple. Good range of motion. LUNGS: Clear to auscultation. HEART: S1, S2. ABDOMEN: Morbidly obese, soft, positive bowel sounds, no guarding or rebound. EXTREMITIES: No clubbing, cyanosis. She has chronic changes of her lower extremities. She has 1 + lower extremity edema bilaterally. She has bands of erythema about both lower third of her tibial area and some mild erythema on the medial aspect of her right leg. There is trace warmth, but there is no pain, there is no tenderness. There is no guarding. There are no open wounds. GENITOURINARY: She has a Alcal[place] in place. SKIN: Without generalized signs of rash, but she does have yeast on her feet as well as in her groin area. NEUROLOGIC: She is nonfocal. PSYCHIATRIC: Affect is appropriate. General: Alert, Oriented X3, Cooperative, No acute distress Abdomen: Normal bowel sounds, Soft Extremities: No cyanosis Labs LABS Laboratory Tests Test 12/29/19 20:26 12/30/19 07:02 12/30/19 11:13 Glucose (Fingerstick) 176 mg/dL (70-99) 139 mg/dL (70-99) 173 mg/dL (70-99) Assessment and Plan Assessmemt and Plan Problems Medical Problems: (1) Acquired lymphedema of lower extremity Status: Acute (2) Cellulitis Status: Acute Comment Review of Relevant I have reviewed the following items ayden (where applicable) has been applied. Labs Laboratory Tests Test 12/28/19 17:57 12/28/19 20:53 12/29/19 04:30 12/29/19 06:20 Glucose (Fingerstick) 161 mg/dL (70-99) 150 mg/dL (70-99) Urine Collection Type Unknown Urine Color Yellow Urine Clarity Clear Urine pH 5.5 Urine Specific [place] 1.020 Urine Protein Negative mg/dL (NEG-TRACE) Urine Glucose (UA) >=1000 mg/dL (NEG) Urine Ketones (Stick) Negative mg/dL (NEG) Urine Blood Negative (NEG) Urine Nitrite Negative (NEG) Urine Bilirubin Negative (NEG) Urine Urobilinogen Dipstick 0.2 mg/dL (0.2 mg/dL) Urine Leukocyte Esterase Small (NEG) Urine RBC 0 /HPF (0-2) Urine WBC 1-4 /HPF (0-4) Urine Squamous Epithelial Cells Mod /LPF Urine Bacteria Few /HPF (0-FEW) Urine Mucus Slight /LPF White Blood Count 4.9 x10^3/uL (4.0-11.0) Red Blood Count 3.12 x10^6/uL (3.50-5.40) Hemoglobin 10.0 g/dL (12.0-15.5) Hematocrit 29.2 % (36.0-47.0) Mean Corpuscular Volume 94 fL (79-100) Mean Corpuscular Hemoglobin 32 pg (25-35) Mean Corpuscular Hemoglobin Concent 34 g/dL (31-37) Red Cell Distribution Width 15.5 % (11.5-14.5) Platelet Count 127 x10^3/uL (140-400) Neutrophils (%) (Auto) 62 % (31-73) Lymphocytes (%) (Auto) 21 % (24-48) Monocytes (%) (Auto) 13 % (0-9) Eosinophils (%) (Auto) 4 % (0-3) Basophils (%) (Auto) 1 % (0-3) Neutrophils # (Auto) 3.1 x10^3/uL (1.8-7.7) Lymphocytes # (Auto) 1.0 x10^3/uL (1.0-4.8) Monocytes # (Auto) 0.6 x10^3/uL (0.0-1.1) Eosinophils # (Auto) 0.2 x10^3/uL (0.0-0.7) Basophils # (Auto) 0.0 x10^3/uL (0.0-0.2) Sodium Level 143 mmol/L (136-145) Potassium Level 3.3 mmol/L (3.5-5.1) Chloride Level 110 mmol/L (98-107) Carbon Dioxide Level 26 mmol/L (21-32) Anion Gap 7 (6-14) Blood Urea Nitrogen 25 mg/dL (7-20) Creatinine 1.2 mg/dL (0.6-1.0) Estimated GFR (Cockcroft-Gault) 44.3 Glucose Level 133 mg/dL (70-99) Calcium Level 7.7 mg/dL (8.5-10.1) Test 12/29/19 07:51 12/29/19 11:42 12/29/19 20:26 12/30/19 07:02 Glucose (Fingerstick) 118 mg/dL (70-99) 175 mg/dL (70-99) 176 mg/dL (70-99) 139 mg/dL (70-99) Test 12/30/19 11:13 Glucose (Fingerstick) 173 mg/dL (70-99) Laboratory Tests Test 12/29/19 20:26 12/30/19 07:02 12/30/19 11:13 Glucose (Fingerstick) 176 mg/dL (70-99) 139 mg/dL (70-99) 173 mg/dL (70-99) Microbiology 12/28/19 Blood Culture - Preliminary, Resulted NO GROWTH AFTER 2 DAYS Medications Current Medications Cefazolin Sodium (Ancef) 1 gm 1X STAT IVP Last administered on 12/28/19at 11:14; Start 12/28/19 at 09:20; Stop 12/28/19 at 10:13; Status DC Ondansetron HCl (Zofran) 4 mg PRN Q8HRS PRN IV NAUSEA/VOMITING; Start 12/28/19 at 12:30; Stop 12/29/19 at 10:43; Status DC Fentanyl Citrate (Fentanyl 2ml Vial) 50 mcg PRN Q1HR PRN IV PAIN; Start 12/28/19 at 12:30; Stop 12/29/19 at 12:29; Status DC Cefazolin Sodium/ Dextrose 50 ml @ 100 mls/hr Q8HRS IV ; Start 12/28/19 at 14:00; Status UNV Cefazolin Sodium (Ancef) 1 gm Q8HRS IVP ; Start 12/28/19 at 14:00; Stop 12/28/19 at 18:52; Status DC Sodium Chloride (Normal Saline Flush) 3 ml QSHIFT PRN IV AFTER MEDS AND BLOOD DRAWS; Start 12/28/19 at 13:15 Sodium Chloride 1,000 ml @ 70 mls/hr [id number] IV Last administered on 12/30/19at 06:14; Start 12/28/19 at 13:04 Ondansetron HCl (Zofran) 4 mg PRN Q4HRS PRN IV NAUSEA/VOMITING; Start 12/28/19 at 13:15 Acetaminophen (Tylenol) 650 mg PRN Q4HRS PRN PO TEMP OVER 100.4F OR MILD PAIN; Start 12/28/19 at 13:15 Clonidine HCl (Catapres) 0.1 mg PRN Q6HRS PRN PO SBP>160 OR DBP>90; Start 12/28/19 at 13:15 Docusate Sodium (Colace) 100 mg PRN BID PRN PO CONSTIPATION; Start 12/28/19 at 13:15 Albuterol Sulfate (Ventolin Neb Soln) 2.5 mg PRN Q4HRS PRN NEB SHORTNESS OF BREATH; Start 12/28/19 at 13:15 Guaifenesin (Robitussin) 200 mg PRN Q4HRS PRN PO COUGH; Start 12/28/19 at 13:15 Enoxaparin Sodium (Lovenox 40mg Syringe) 40 mg Q24H SQ Last administered on 12/29/19at 14:41; Start 12/28/19 at 14:00 Nystatin (Nystop) 1 soni BID TP Last administered on 12/30/19at 08:36; Start 12/28/19 at 21:00 Cefazolin Sodium (Ancef) 1 gm Q8HRS IVP Last administered on 12/29/19at 05:45; Start 12/28/19 at 20:00; Stop 12/29/19 at 10:51; Status DC Fluconazole (Diflucan) 100 mg DAILY PO Last administered on 12/30/19at 08:36; Start 12/29/19 at 12:00 Doxycycline Hyclate (Vibra-Tab) 100 mg BID PO Last administered on 12/30/19at 08:36; Start 12/29/19 at 12:00 Ceftriaxone Sodium (Rocephin) 1 gm Q24H IVP Last administered on 12/30/19at 11:21; Start 12/29/19 at 11:00 Lactobacillus Rhamnosus (Culturelle) 1 cap BID PO Last administered on 12/30/19at 08:36; Start 12/29/19 at 21:00 Vitals/I & O Vital Sign - Last 24 Hours 12/29/19 12/29/19 12/29/19 12/29/19 15:00 19:00 20:00 23:00 Temp 97.9 97.8 98.2 97.9 97.8 98.2 Pulse 97 85 83 Resp 18 18 B/P (MAP) 115/44 (67) 107/48 (67) 127/61 (83) Pulse Ox 95 94 100 O2 Delivery Room Air Room Air Room Air Room Air 12/30/19 12/30/19 12/30/19 12/30/19 03:00 07:15 07:47 11:00 Temp 98.1 98.4 98.3 98.1 98.4 98.3 Pulse 84 90 83 Resp 18 20 B/P (MAP) 125/57 (79) 126/53 (77) 131/53 (79) Pulse Ox 99 99 97 O2 Delivery Room Air Room Air Room Air Room Air Intake and Output 12/29/19 12/29/19 12/30/19 15:00 23:00 07:00 Intake Total 200 ml 400 ml 610 ml Output Total 420 ml 600 ml 500 ml Balance -220 ml -200 ml 110 ml Nutrition Consultation Dietary Evaluation: Recommendations by RD: Dietary education by RD, Increase Calorie Intake, Protein supplementation Comments: yamileth bid REC mvi q day per wound protocal Expected Outcomes/Goals: to meet >75% est protein needs Malnutrition Findings: Food and Nutrition Intake (Mod: <75% est energy req 7days Weight Status: Morbidly Obese Fluid Accumulation (Severe): Severe JAMES COREAS MD Dec 30, 2019 13:14
[2019-12-30] MEDS: ENOXAPARIN 40 MG/0.4 ML SYRINGE. SQ SCH (13:28)
[2019-12-30 15:14] VITALS: BP 128/56
[2019-12-30 19:13] VITALS: BP 119/42
[2019-12-30 23:20] VITALS: BP 124/52
[2019-12-31] MEDS: IV NORMAL SALINE 1000ML BAG 1,000 ML IV SCH ×2 (02:00→11:39)
[2019-12-31 03:04] VITALS: BP 122/57
[2019-12-31] MEDS ORDERED: cefTRIAXone IV Push 1 GM VIAL. IVP SCH ×2 (03:15→06:00)
[2019-12-31] MEDS: diphenhydrAMINE HCL 25 MG CAPSULE PO PRN (05:45)
[2019-12-31 07:00] VITALS: BP 127/56
[2019-12-31] MEDS: FLUCONAZOLE 100 MG TABLET. PO SCH (08:46)
[2019-12-31] MEDS: LACTOBACILLUS RHAMNOSUS GG 1 CAPSULE. PO SCH ×2 (08:46→20:23)
[2019-12-31] MEDS: DOXYCYCLINE HYCLATE 100 MG TABLET PO SCH (08:46)
[2019-12-31] MEDS: NYSTATIN TOPICAL POWDER 15GM BOTTLE. TP SCH ×2 (08:47→20:23)
--- NOTE | 2019-12-31 08:49 | NUR ---
GUERLINE following. Discussed with RN, pt accepted at [facility] pending insurance. Per RN, pt has a new rash today. GUERLINE will continue to follow. Addendum: 12/31/19 at 1308 by SINAN CUNHA Insurance has approved for pt to go to [facility], probable discharge tomorrow (01/01/2020) due to pt rash - changing abx today.
--- NOTE | 2019-12-31 10:45 | PDOC ---
Infectious Disease Note Subjective Subjective Better. Began to itch and develop rash yesterday afternoon Had Benadryl this am No F/C/S/N/V/D/SOA/rash Vital Sign Vital Signs Vital Signs Date Time Temp Pulse Resp B/P (MAP) Pulse Ox O2 Delivery O2 Flow Rate FiO2 12/31/19 07:58 Room Air 12/31/19 07:00 98.1 80 16 127/56 (79) 99 98.1 Physical Exam PHYSICAL EXAM CONSTITUTIONAL: She is alert, cooperative, in no acute distress. She is lying in bed. She was sleeping on arrival, but awakened. HEENT: Pupils equal and reactive. Normal conjunctivae. Oral cavity, pharynx is clear - no breakdown. NECK: Supple. Good range of motion. LUNGS: Clear to auscultation.- no Wheeze HEART: S1, S2. ABDOMEN: Morbidly obese, soft, positive bowel sounds, no guarding or rebound. EXTREMITIES: No clubbing, cyanosis. She has chronic changes of her lower extremities. She has 1 + lower extremity edema bilaterally. She has bands of erythema about both lower third of her tibial area and some mild erythema on the medial aspect of her right leg. There is trace warmth, but there is no pain, there is no tenderness. There is no guarding. There are no open wounds. GENITOURINARY: She has a Alcala in place. SKIN: With macular rash on trunk and inner thighs and arms, but she does have yeast on her feet as well as in her groin area. NEUROLOGIC: She is nonfocal. PSYCHIATRIC: Affect is appropriate. Labs Lab Laboratory Tests Test 12/30/19 11:13 12/30/19 16:38 12/30/19 21:00 12/31/19 08:18 Glucose (Fingerstick) 173 mg/dL (70-99) 164 mg/dL (70-99) 168 mg/dL (70-99) 114 mg/dL (70-99) Micro Microbiology 12/28/19 Blood Culture - Preliminary, Resulted NO GROWTH AFTER 1 DAY Objective Assessment Generalized rash ? rocephin given PCN allergy - no mucosal breakdown LE cellulitis R> Left Abx allergies - PCN - rash uncertain if had Amox/Bactrim - nausea H/o MSSA Yeast in groin and feet Abnormal UA - asymptomatic Cat exposure LE Lymphedema RASTA Morbid obesity Plan Plan of Care Discont Rocephin 12/29 and Doxy Begin Zyvox Cont Diflucan 12/29 F/u Urine cult but ? contaminated Elevation and local wound care SKIP FARIAS MD Dec 31, 2019 10:45
[2019-12-31 11:00] VITALS: BP 117/58
[2019-12-31] MEDS: LINEZOLID 600 MG TABLET PO SCH ×2 (11:39→20:23)
[2019-12-31] MEDS: ENOXAPARIN 40 MG/0.4 ML SYRINGE. SQ SCH (11:40)
--- NOTE | 2019-12-31 12:19 | PDOC ---
PROGRESS NOTES Chief Complaint Chief Complaint sepsis acute Cellulitis right lower leg, ankle morbid obesity , BMI 44 Acquired lymphedema of lower extremity/ serum hypoalbumin, protein-caloric malnutrition CKD stage 3 History of Present Illness History of Present Illness she is still very weak, will need snu pt and ot and lymphedema therapy Vitals Vitals Vital Signs Date Time Temp Pulse Resp B/P (MAP) Pulse Ox O2 Delivery O2 Flow Rate FiO2 12/31/19 11:00 97.8 87 16 117/58 (77) 98 Room Air 97.8 Physical Exam Physical Exam CONSTITUTIONAL: She is alert, cooperative, in no acute distress. She is lying in bed. She was sleeping on arrival, but awakened. HEENT: Pupils equal and reactive. Normal conjunctivae. Oral cavity, pharynx is clear - no breakdown. NECK: Supple. Good range of motion. LUNGS: Clear to auscultation.- no Wheeze HEART: S1, S2. ABDOMEN: Morbidly obese, soft, positive bowel sounds, no guarding or rebound. EXTREMITIES: No clubbing, cyanosis. She has chronic changes of her lower extremities. She has 1 + lower extremity edema bilaterally. She has bands of erythema about both lower third of her tibial area and some mild erythema on the medial aspect of her right leg. There is trace warmth, but there is no pain, there is no tenderness. There is no guarding. There are no open wounds. GENITOURINARY: She has a Alcal[place] in place. SKIN: With macular rash on trunk and inner thighs and arms, but she does have yeast on her feet as well as in her groin area. NEUROLOGIC: She is nonfocal. PSYCHIATRIC: Affect is appropriate. General: Alert, Oriented X3, Cooperative, No acute distress Abdomen: Normal bowel sounds, Soft Extremities: No cyanosis Labs LABS Laboratory Tests Test 12/30/19 16:38 12/30/19 21:00 12/31/19 08:18 12/31/19 11:10 Glucose (Fingerstick) 164 mg/dL (70-99) 168 mg/dL (70-99) 114 mg/dL (70-99) 164 mg/dL (70-99) Assessment and Plan Assessmemt and Plan Problems Medical Problems: (1) Acquired lymphedema of lower extremity Status: Acute (2) Cellulitis Status: Acute Comment Review of Relevant I have reviewed the following items ayden (where applicable) has been applied. Labs Laboratory Tests Test 12/29/19 20:26 12/30/19 07:02 12/30/19 11:13 12/30/19 16:38 Glucose (Fingerstick) 176 mg/dL (70-99) 139 mg/dL (70-99) 173 mg/dL (70-99) 164 mg/dL (70-99) Test 12/30/19 21:00 12/31/19 08:18 12/31/19 11:10 Glucose (Fingerstick) 168 mg/dL (70-99) 114 mg/dL (70-99) 164 mg/dL (70-99) Laboratory Tests Test 12/30/19 16:38 12/30/19 21:00 12/31/19 08:18 12/31/19 11:10 Glucose (Fingerstick) 164 mg/dL (70-99) 168 mg/dL (70-99) 114 mg/dL (70-99) 164 mg/dL (70-99) Microbiology 12/29/19 Urine Culture - Final, Complete 12/29/19 Urine Culture Result 1 (MISHA) - Final, Complete 12/28/19 Blood Culture - Preliminary, Resulted NO GROWTH AFTER 2 DAYS Medications Current Medications Cefazolin Sodium (Ancef) 1 gm 1X STAT IVP Last administered on 12/28/19at 11:14; Start 12/28/19 at 09:20; Stop 12/28/19 at 10:13; Status DC Ondansetron HCl (Zofran) 4 mg PRN Q8HRS PRN IV NAUSEA/VOMITING; Start 12/28/19 at 12:30; Stop 12/29/19 at 10:43; Status DC Fentanyl Citrate (Fentanyl 2ml Vial) 50 mcg PRN Q1HR PRN IV PAIN; Start 12/28/19 at 12:30; Stop 12/29/19 at 12:29; Status DC Cefazolin Sodium/ Dextrose 50 ml @ 100 mls/hr Q8HRS IV ; Start 12/28/19 at 14:00; Status UNV Cefazolin Sodium (Ancef) 1 gm Q8HRS IVP ; Start 12/28/19 at 14:00; Stop 12/28/19 at 18:52; Status DC Sodium Chloride (Normal Saline Flush) 3 ml QSHIFT PRN IV AFTER MEDS AND BLOOD D RAWS; Start 12/28/19 at 13:15 Sodium Chloride 1,000 ml @ 70 mls/hr [id number] IV Last administered on 12/31/19at 11:39; Start 12/28/19 at 13:04 Ondansetron HCl (Zofran) 4 mg PRN Q4HRS PRN IV NAUSEA/VOMITING; Start 12/28/19 at 13:15 Acetaminophen (Tylenol) 650 mg PRN Q4HRS PRN PO TEMP OVER 100.4F OR MILD PAIN Last administered on 12/30/19at 21:47; Start 12/28/19 at 13:15 Clonidine HCl (Catapres) 0.1 mg PRN Q6HRS PRN PO SBP>160 OR DBP>90; Start 12/28/19 at 13:15 Docusate Sodium (Colace) 100 mg PRN BID PRN PO CONSTIPATION; Start 12/28/19 at 13:15 Albuterol Sulfate (Ventolin Neb Soln) 2.5 mg PRN Q4HRS PRN NEB SHORTNESS OF BREATH; Start 12/28/19 at 13:15 Guaifenesin (Robitussin) 200 mg PRN Q4HRS PRN PO COUGH; Start 12/28/19 at 13:15 Enoxaparin Sodium (Lovenox 40mg Syringe) 40 mg Q24H SQ Last administered on 12/31/19at 11:40; Start 12/28/19 at 14:00 Nystatin (Nystop) 1 soni BID TP Last administered on 12/30/19at 21:49; Start 12/28/19 at 21:00 Cefazolin Sodium (Ancef) 1 gm Q8HRS IVP Last administered on 12/29/19at 05:45; Start 12/28/19 at 20:00; Stop 12/29/19 at 10:51; Status DC Fluconazole (Diflucan) 100 mg DAILY PO Last administered on 12/31/19at 08:46; Start 12/29/19 at 12:00 Doxycycline Hyclate (Vibra-Tab) 100 mg BID PO Last administered on 12/31/19at 08:46; Start 12/29/19 at 12:00; Stop 12/31/19 at 11:03; Status DC Ceftriaxone Sodium (Rocephin) 1 gm Q24H IVP Last administered on 12/30/19at 11:21; Start 12/29/19 at 11:00; Stop 12/30/19 at 15:05; Status DC Lactobacillus Rhamnosus (Culturelle) 1 cap BID PO Last administered on 12/31/19at 08:46; Start 12/29/19 at 21:00 Ceftriaxone Sodium (Rocephin) 1 gm Q12H IVP ; Start 12/31/19 at 03:15; Status Cancel Ceftriaxone Sodium (Rocephin) 1 gm Q12H IVP Last administered on 12/31/19at 06:18; Start 12/31/19 at 06:00; Stop 12/31/19 at 11:03; Status DC Diphenhydramine HCl (Benadryl) 25 mg PRN Q6HRS PRN PO ITCHING Last administered on 12/31/19at 05:45; Start 12/31/19 at 03:15 Linezolid (Zyvox) 600 mg BID PO Last administered on 12/31/19at 11:39; Start 12/31/19 at 12:00 Vitals/I & O Vital Sign - Last 24 Hours 12/30/19 12/30/19 12/30/19 12/30/19 15:14 19:13 20:00 23:20 Temp 97.8 99.1 99.0 97.8 99.1 99.0 Pulse 80 86 83 Resp 20 16 18 B/P (MAP) 128/56 (80) 119/42 (67) 124/52 (76) Pulse Ox 95 100 100 O2 Delivery Room Air Room Air Room Air Room Air 12/31/19 12/31/19 12/31/19 12/31/19 03:04 07:00 07:58 11:00 Temp 98.8 98.1 97.8 98.8 98.1 97.8 Pulse 78 80 87 Resp 18 16 16 B/P (MAP) 122/57 (78) 127/56 (79) 117/58 (77) Pulse Ox 98 99 98 O2 Delivery Room Air Room Air Room Air Room Air Intake and Output 12/30/19 12/30/19 12/31/19 15:00 23:00 07:00 Intake Total 520 ml 150 ml 300 ml Output Total 550 ml 600 ml Balance 520 ml -400 ml -300 ml Nutrition Consultation Dietary Evaluation: Recommendations by RD: Dietary education by RD, Increase Calorie Intake, Protein supplementation Comments: yamileth bid REC mvi q day per wound protocal Expected Outcomes/Goals: to meet >75% est protein needs Malnutrition Findings: Food and Nutrition Intake (Mod: <75% est energy req 7days Weight Status: Morbidly Obese Fluid Accumulation (Severe): Severe JAMES COREAS MD Dec 31, 2019 12:19
[2019-12-31] MEDS ORDERED: DIPHENHYDRAMINE/ZINC ACETATE 2%/0.1% TOPICAL CREAM 28GM TUBE. TP PRN (12:30)
[2019-12-31 15:00] VITALS: BP 120/46
[2019-12-31 19:00] VITALS: BP 120/49
[2019-12-31] MEDS ORDERED: IPRATRPIUM/ALBUTEROL 0.5/2.5MG 3 ML NEBU. NEB ONE (21:00)
[2019-12-31 23:55] VITALS: BP 115/51
[2020-01-01] MEDS: IV NORMAL SALINE 1000ML BAG 1,000 ML IV SCH ×2 (02:52→13:51)
[2020-01-01 03:42] VITALS: BP 105/51
[2020-01-01 05:46] LABS: BASO % 0 % (0-3); EOS # 0.5 x10^3/uL (0.0-0.7); EOS % 10 % (0-3); HEMATOCRIT 31.4 % (36.0-47.0); HEMOGLOBIN 10.8 g/dL (12.0-15.5); LYMPH # 0.6 x10^3/uL (1.0-4.8); LYMPH % 11 % (24-48); MEAN CORPUSCULAR HEMOGLOBIN 33 pg (25-35); MEAN CORPUSCULAR HGB CONC 35 g/dL (31-37); MEAN CORPUSCULAR VOLUME 95 fL (79-100); MONO # 0.6 x10^3/uL (0.0-1.1); MONO % 11 % (0-9); NEUT # 3.6 x10^3/uL (1.8-7.7); NEUT % 68 % (31-73); PLATELET COUNT 149 x10^3/uL (140-400); RED CELL DISTRIBUTION WIDTH 16.1 % (11.5-14.5); WHITE BLOOD COUNT 5.3 x10^3/uL (4.0-11.0)
[2020-01-01 05:47] LABS: CALCIUM 7.5 mg/dL (8.5-10.1); CREATININE 0.8 mg/dL (0.6-1.0); GFR 70.7
[2020-01-01 05:52] LABS: POTASSIUM 4.1 mmol/L (3.5-5.1)
[2020-01-01 07:00] VITALS: BP 117/48
[2020-01-01] MEDS: IPRATRPIUM/ALBUTEROL 0.5/2.5MG 3 ML NEBU. NEB SCH ×3 (07:20→16:19)
[2020-01-01] MEDS: LACTOBACILLUS RHAMNOSUS GG 1 CAPSULE. PO SCH (08:24)
[2020-01-01] MEDS: NYSTATIN TOPICAL POWDER 15GM BOTTLE. TP SCH (08:24)
[2020-01-01] MEDS: FLUCONAZOLE 100 MG TABLET. PO SCH (08:24)
--- NOTE | 2020-01-01 08:36 | RAD ---
PORTABLE CHEST 1V Clinical indications: Pleuritic chest pain. COMPARISON: None available. Findings: Mild linear atelectasis or scarring of the left lower lung zone is seen. No lung consolidation or pleural effusion or pulmonary edema or lung mass or pneumothorax is seen. The heart size, pulmonary vasculature, mediastinum and both sunny are unremarkable. Impression: Mild linear atelectasis or scarring of the left lower lung zone. No consolidative pneumonia. Electronically signed by: Wilbert Kimbrough MD (01/01/2020 8:33 AM) [id number]
[2020-01-01] MEDS: LINEZOLID 600 MG TABLET PO SCH (08:43)
--- NOTE | 2020-01-01 09:15 | NUR ---
GUERLINE following. Discussed with RN, pt having chest xray today, and speech eval. Pt's insurance has approved SNU, will need to transfer today to [facility] so auth doesn't . GUERLINE will continue to follow. THI notified. Addendum: 01/01/20 at 1300 by SINAN CUNHA Pt discharging to [facility] today, SW awaiting transportation time. THI notified. Addendum: 01/01/20 at 1324 by SINAN CUNHA Transportation set up for 1700. THI notified.
[2020-01-01 11:00] VITALS: BP 121/55
[2020-01-01] MEDS ORDERED: DIPH28CR TP (11:15)
[2020-01-01] MEDS ORDERED: LINE600T12 PO (11:15)
[2020-01-01] MEDS ORDERED: Fluconazole PO (11:15)
[2020-01-01] MEDS ORDERED: GUAI100L12 PO (11:15)
[2020-01-01] MEDS ORDERED: NYST60PO TP (11:15)
--- NOTE | 2020-01-01 11:16 | SNU/HH DC ---
DISCHARGE ORDERS DISCHARGE INFORMATION: DISCHARGE DATE: Jan 01, 2020 FINAL DIAGNOSIS Problems Medical Problems: (1) Acquired lymphedema of lower extremity Status: Acute (2) Cellulitis Status: Acute CONDITION ON DISCHARGE: Stable CODE STATUS: Code Status: Full ALF: SNF STAY <30 DAYS: Yes POST DISCHARGE ORDERS: DIET AFTER DISCHARGE: Cardiac TREATMENT/EQUIPMENT ORDERS: ADAPTIVE EQUIPMENT NEEDED: Commode, Front wheeled walker Physical Therapy For: Evalulation/Treatment Occupational Therapy For: Evaluation/Treatment DISCHARGE MEDICATIONS: Home Meds Active Scripts Diphenhydramine Hcl/Zinc Acet (BANOPHEN ANTI-ITCH 2% CREAM) 28 Gm Cream..g., 1 JUAN TP Q4HRS PRN for rash for 7 Days, #42 EACH Prov:JAMES COREAS MD 01/01/20 Nystatin (NYSTOP) 60 Gm Powder, 1 JUAN TP BID for rash for 7 Days, #14 MISC Prov:JAMES COREAS MD 01/01/20 Guaifenesin (GUAIFENESIN) 100 Mg/5 Ml Liquid, 200 MG PO PRN Q4HRS PRN for COUGH, #20 LIQUID Prov:JAMES COREAS MD 01/01/20 Linezolid (ZYVOX) 600 Mg Tablet, 600 MG PO BID for cellulitis, #14 TAB Prov:JAMES COREAS MD 01/01/20 [Fluconazole] 100 MG TABLET No Conflict Check, 100 MG PO DAILY for cellulitis, #7 TAB Prov:JAMES COREAS MD 01/01/20 JAMES COREAS MD Jan 01, 2020 11:16
--- NOTE | 2020-01-01 11:43 | PDOC2 ---
GI CONSULT Reason For Consult: globus sensation, dysphagia HPI: HPI: 69 y/o female w/ BLE cellulitis on antibiotics. Plans to [facility] to [facility] today. Had [employer] eval, no concern for oropharyngeal dysphagia. Reports long h/o intermittent symptoms - feels dry foods or pills ("when I take a lot at a time") get hung up in midchest. Has occurred more frequently here w/ solids and liquids. Mostly feels a "lump." Never has to cough anything back up, no regurg. H/o GERD, usually on pantoprazole QD 30 min before breakfast at home, not taking here. No odynophagia. No n/v. Might have some lower abdominal discomfort - says thinks related to needing to have a bowel movement. H/o diarrhea improved w/ adjustment of metformin. Also can be constipated sometimes but not often. No hematochezia or melena. Appetite is good but doesn't like the food. EGD and colonoscopy on 03/16/[address] Ghosh for anemia, cirrhosis, h/o celiac disease, and h/o adenomatous colon polyps showed healed GERD, small esophageal varices, two non-bleeding gastric AVMs (upper body), possible scalloping of folds in second portion of duodenum (biopsy without significant abnormalities on gluten free diet), adenomatous rectal polyp, diverticulosis (proximal transverse to distal sigmoid), and non-bleeding internal hemorrhoids. H/o cirrhosis/VILLATORO. Question of possible gallstones on past CT (2014) though not on US (done on same day). No pancreas history. Does not follow strict gluten-free diet. Daily ASA 81mg. Chronic anemia. Concerned w/ rash from antibiotics. Has another chart in [employer]: [id number]. PMH: PMH: REG, DM, lymphedema, GERD, ?celiac disease, adenomatous colon polyps, diverticulosis, hemorrhoids, cirrhosis/VILLATORO, esophageal varices, AML s/p chemo, PE appendectomy FH: Family History: Other (adopted) Social History: Smoke: No ALCOHOL: none Drugs: None ROS: GEN: Denies fevers, chills, sweats HEENT: Denies blurred vision, sore throat CV: Denies chest pain RESP: +cough GI: Per HPI : Denies hematuria, dysuria ENDO: Denies weight changes NEURO: Denies confusion, dizziness MSK: Denies weakness, joint pain/swelling SKIN: red rash BUE, BLE, swelling BLE Vitals: Vitals: Vital Signs Date Time Temp Pulse Resp B/P (MAP) Pulse Ox O2 Delivery O2 Flow Rate FiO2 01/01/20 10:51 99 Room Air 01/01/20 07:00 97.8 100 16 117/48 (71) 97.8 Labs: Labs: Laboratory Tests Test 12/31/19 16:58 12/31/19 20:25 01/01/20 04:40 01/01/20 08:13 Glucose (Fingerstick) 180 mg/dL (70-99) 200 mg/dL (70-99) 143 mg/dL (70-99) White Blood Count 5.3 x10^3/uL (4.0-11.0) Red Blood Count 3.30 x10^6/uL (3.50-5.40) Hemoglobin 10.8 g/dL (12.0-15.5) Hematocrit 31.4 % (36.0-47.0) Mean Corpuscular Volume 95 fL (79-100) Mean Corpuscular Hemoglobin 33 pg (25-35) Mean Corpuscular Hemoglobin Concent 35 g/dL (31-37) Red Cell Distribution Width 16.1 % (11.5-14.5) Platelet Count 149 x10^3/uL (140-400) Neutrophils (%) (Auto) 68 % (31-73) Lymphocytes (%) (Auto) 11 % (24-48) Monocytes (%) (Auto) 11 % (0-9) Eosinophils (%) (Auto) 10 % (0-3) Basophils (%) (Auto) 0 % (0-3) Neutrophils # (Auto) 3.6 x10^3/uL (1.8-7.7) Lymphocytes # (Auto) 0.6 x10^3/uL (1.0-4.8) Monocytes # (Auto) 0.6 x10^3/uL (0.0-1.1) Eosinophils # (Auto) 0.5 x10^3/uL (0.0-0.7) Basophils # (Auto) 0.0 x10^3/uL (0.0-0.2) Sodium Level 142 mmol/L (136-145) Potassium Level 4.1 mmol/L (3.5-5.1) Chloride Level 111 mmol/L (98-107) Carbon Dioxide Level 23 mmol/L (21-32) Anion Gap 8 (6-14) Blood Urea Nitrogen 27 mg/dL (7-20) Creatinine 0.8 mg/dL (0.6-1.0) Estimated GFR (Cockcroft-Gault) 70.7 Glucose Level 156 mg/dL (70-99) Calcium Level 7.5 mg/dL (8.5-10.1) URINE CULTURE RES 1 Final No growth BLOOD CULTURE Preliminary NO GROWTH AFTER 4 DAYS Allergies: Coded Allergies: Penicillins (Verified Allergy, Intermediate, Itching, 12/28/19) sulfamethoxazole (Verified Allergy, Intermediate, "UPSET STOMACH" , 12/28/19) trimethoprim (Verified Allergy, Intermediate, "UPSET STOMACH" , 12/28/19) Medications: Current Medications Medications (Trade) Dose Ordered Sig/Mae Route PRN Reason Start Time Stop Time Status Last Admin Dose Admin Linezolid (Zyvox) 600 mg BID PO 12/31/19 12:00 01/01/20 08:43 Zinc Acetate/ Diphenhydramine (Benadryl Topical) 1 soni Q4HRS PRN TP rash 12/31/19 12:30 12/31/19 20:23 Albuterol/ Ipratropium (Duoneb) 3 ml RTQID NEB 01/01/20 08:00 01/01/20 10:50 Albuterol/ Ipratropium (Duoneb) 3 ml 1X ONCE NEB 12/31/19 21:00 12/31/19 21:01 DC 12/31/19 21:25 Imaging: Imaging: RLE US Impression: 1. There is no convincing evidence of deep venous thrombosis from the right common femoral to the popliteal veins, exam limited due to patient's body habitus. CXR Impression: Mild linear atelectasis or scarring of the left lower lung zone. No consolidative pneumonia. [employer] Bedside Swallow Eval Swallow eval completed. Pt c/o sensation of "lump" in area of sternum. States no difficulty w/liquids, has trouble w/dry meats and mixes them w/mashed potatoes to aid in transit. Phonation mildly hoarse, oral mech WFLs. Multiple trials of all tested consistencies w/o indication of oropharyngeal delay or weakness. No s/s aspiration when seated up at 90*. IMPRESSIONS: Oropharyngeal swallow WNLs. No evidence of aspiration. Pt's c/o is c/w poss esophageal dysphagia. Would consider referral to GI for further w/u. RECOMMENDATIONS: Con't regular diet w/thin liquids. General precautions including sit up at 90* for all po intake. May use straws. Consider referral to GI. LOREN iVzcarra. PE: GEN: NAD HEENT: Atraumatic, PERRL, voice is hoarse, clearing throat LUNGS: diminished anteriorly HEART: RRR ABD: NABS, S/NT, obese, hernia EXTREMITY: BLE elevated and wrapped SKIN: erythema BUE and BLE NEURO/PSYCH: A & O 3 A/P: A/P: BLE cellulitis Chronic anemia Globus/dysphagia - chronic w/ dry foods, worse for a few days GERD - usually takes PPI Q a.m. H/o gastric AVMs Cirrhosis/VILLATORO, small esophageal varices - bili 1.8 and AST 40 on 12/28, plt currently WNL ?h/o celiac disease - normal duodenal biopsies on EGD in 2015 while on gluten free diet, currently not strictly gluten-free CRC screen, h/o adenomatous polyps - UTD Diverticulosis, hemorrhoids H/o AML -- Resume PPI, no need for urgent EGD. ?resume gluten free diet Due for screening colonoscopy in 2020. SHASHANK HOWELL Jan 01, 2020 11:43
[2020-01-01] MEDS ORDERED: PANTOPRAZOLE 40 MG TABLET.DR. PO SCH (12:00)
--- NOTE | 2020-01-01 12:10 | PDOC ---
PULMONARY PROGRESS NOTES Vitals Vital Signs Date Time Temp Pulse Resp B/P (MAP) Pulse Ox O2 Delivery O2 Flow Rate FiO2 01/01/20 10:51 99 Room Air 01/01/20 07:00 97.8 100 16 117/48 (71) 97.8 Labs Laboratory Tests Test 12/30/19 16:38 12/30/19 21:00 12/31/19 08:18 12/31/19 11:10 Glucose (Fingerstick) 164 mg/dL (70-99) 168 mg/dL (70-99) 114 mg/dL (70-99) 164 mg/dL (70-99) Test 12/31/19 16:58 12/31/19 20:25 01/01/20 04:40 01/01/20 08:13 Glucose (Fingerstick) 180 mg/dL (70-99) 200 mg/dL (70-99) 143 mg/dL (70-99) White Blood Count 5.3 x10^3/uL (4.0-11.0) Red Blood Count 3.30 x10^6/uL (3.50-5.40) Hemoglobin 10.8 g/dL (12.0-15.5) Hematocrit 31.4 % (36.0-47.0) Mean Corpuscular Volume 95 fL (79-100) Mean Corpuscular Hemoglobin 33 pg (25-35) Mean Corpuscular Hemoglobin Concent 35 g/dL (31-37) Red Cell Distribution Width 16.1 % (11.5-14.5) Platelet Count 149 x10^3/uL (140-400) Neutrophils (%) (Auto) 68 % (31-73) Lymphocytes (%) (Auto) 11 % (24-48) Monocytes (%) (Auto) 11 % (0-9) Eosinophils (%) (Auto) 10 % (0-3) Basophils (%) (Auto) 0 % (0-3) Neutrophils # (Auto) 3.6 x10^3/uL (1.8-7.7) Lymphocytes # (Auto) 0.6 x10^3/uL (1.0-4.8) Monocytes # (Auto) 0.6 x10^3/uL (0.0-1.1) Eosinophils # (Auto) 0.5 x10^3/uL (0.0-0.7) Basophils # (Auto) 0.0 x10^3/uL (0.0-0.2) Sodium Level 142 mmol/L (136-145) Potassium Level 4.1 mmol/L (3.5-5.1) Chloride Level 111 mmol/L (98-107) Carbon Dioxide Level 23 mmol/L (21-32) Anion Gap 8 (6-14) Blood Urea Nitrogen 27 mg/dL (7-20) Creatinine 0.8 mg/dL (0.6-1.0) Estimated GFR (Cockcroft-Gault) 70.7 Glucose Level 156 mg/dL (70-99) Calcium Level 7.5 mg/dL (8.5-10.1) Laboratory Tests Test 12/31/19 16:58 12/31/19 20:25 01/01/20 04:40 01/01/20 08:13 Glucose (Fingerstick) 180 mg/dL (70-99) 200 mg/dL (70-99) 143 mg/dL (70-99) White Blood Count 5.3 x10^3/uL (4.0-11.0) Red Blood Count 3.30 x10^6/uL (3.50-5.40) Hemoglobin 10.8 g/dL (12.0-15.5) Hematocrit 31.4 % (36.0-47.0) Mean Corpuscular Volume 95 fL (79-100) Mean Corpuscular Hemoglobin 33 pg (25-35) Mean Corpuscular Hemoglobin Concent 35 g/dL (31-37) Red Cell Distribution Width 16.1 % (11.5-14.5) Platelet Count 149 x10^3/uL (140-400) Neutrophils (%) (Auto) 68 % (31-73) Lymphocytes (%) (Auto) 11 % (24-48) Monocytes (%) (Auto) 11 % (0-9) Eosinophils (%) (Auto) 10 % (0-3) Basophils (%) (Auto) 0 % (0-3) Neutrophils # (Auto) 3.6 x10^3/uL (1.8-7.7) Lymphocytes # (Auto) 0.6 x10^3/uL (1.0-4.8) Monocytes # (Auto) 0.6 x10^3/uL (0.0-1.1) Eosinophils # (Auto) 0.5 x10^3/uL (0.0-0.7) Basophils # (Auto) 0.0 x10^3/uL (0.0-0.2) Sodium Level 142 mmol/L (136-145) Potassium Level 4.1 mmol/L (3.5-5.1) Chloride Level 111 mmol/L (98-107) Carbon Dioxide Level 23 mmol/L (21-32) Anion Gap 8 (6-14) Blood Urea Nitrogen 27 mg/dL (7-20) Creatinine 0.8 mg/dL (0.6-1.0) Estimated GFR (Cockcroft-Gault) 70.7 Glucose Level 156 mg/dL (70-99) Calcium Level 7.5 mg/dL (8.5-10.1) Medications Active Scripts Medications Dose Route/Sig Max Daily Dose Days Date Category Banophen Anti-Itch 2% Cream (Diphenhydramine Hcl/Zinc Acet) 28 Gm Cream..g. 1 Angel TP Q4HRS PRN 7 01/01/20 Rx Nystop (Nystatin) 60 Gm Powder 1 Angel TP BID 7 01/01/20 Rx Guaifenesin 100 Mg/5 Ml Liquid 200 Mg PO PRN Q4HRS PRN 01/01/20 Rx Zyvox (Linezolid) 600 Mg Tablet 600 Mg PO BID 01/01/20 Rx [Fluconazole] 100 MG Tablet 100 Mg PO DAILY 01/01/20 Rx Impression . NOTE DICTATED OK TO TRANSFER THANKS ELIESER DYSON MD Jan 01, 2020 12:10
[2020-01-01] MEDS ORDERED: PANT40TA77 PO (12:18)
--- NOTE | 2020-01-01 12:43 | PDOC ---
Infectious Disease Note Subjective Subjective Much Better. Occ itch and not asking for Benadryl. Rash is stable Eating leg better No F/C/S/N/V/D/SOA ROS ROS o/w neg Vital Sign Vital Signs Vital Signs Date Time Temp Pulse Resp B/P (MAP) Pulse Ox O2 Delivery O2 Flow Rate FiO2 01/01/20 11:00 98.2 107 18 121/55 (77) 97 Room Air 98.2 Physical Exam PHYSICAL EXAM CONSTITUTIONAL: She is alert, cooperative, in no acute distress. She is lying in bed. She looks much better HEENT: Pupils equal and reactive. Normal conjunctivae. Oral cavity, pharynx is clear - no breakdown. NECK: Supple. Good range of motion. LUNGS: Clear to auscultation.- no Wheeze HEART: S1, S2. ABDOMEN: Morbidly obese, soft, positive bowel sounds, no guarding or rebound. EXTREMITIES: No clubbing, cyanosis. She has chronic changes of her lower extremities. She has 1 + lower extremity edema bilaterally. tubigrips inplace. There is no pain, there is no tenderness. There is no guarding. There are no open wounds.RUE with trace to 1 plus edema - good pulses and NVI and cap refill. No pain or warmth and good ROM. LUE with trace to 1 plus edema GENITOURINARY: She has a [place] in place. SKIN: With macular rash on trunk and inner thighs and arms stable to slight improvement as skin has wrinkled some, but she does have yeast on her feet as well as in her groin area. NEUROLOGIC: She is nonfocal. PSYCHIATRIC: Affect is appropriate. Labs Lab Laboratory Tests Test 12/31/19 16:58 12/31/19 20:25 01/01/20 04:40 01/01/20 08:13 Glucose (Fingerstick) 180 mg/dL (70-99) 200 mg/dL (70-99) 143 mg/dL (70-99) White Blood Count 5.3 x10^3/uL (4.0-11.0) Red Blood Count 3.30 x10^6/uL (3.50-5.40) Hemoglobin 10.8 g/dL (12.0-15.5) Hematocrit 31.4 % (36.0-47.0) Mean Corpuscular Volume 95 fL (79-100) Mean Corpuscular Hemoglobin 33 pg (25-35) Mean Corpuscular Hemoglobin Concent 35 g/dL (31-37) Red Cell Distribution Width 16.1 % (11.5-14.5) Platelet Count 149 x10^3/uL (140-400) Neutrophils (%) (Auto) 68 % (31-73) Lymphocytes (%) (Auto) 11 % (24-48) Monocytes (%) (Auto) 11 % (0-9) Eosinophils (%) (Auto) 10 % (0-3) Basophils (%) (Auto) 0 % (0-3) Neutrophils # (Auto) 3.6 x10^3/uL (1.8-7.7) Lymphocytes # (Auto) 0.6 x10^3/uL (1.0-4.8) Monocytes # (Auto) 0.6 x10^3/uL (0.0-1.1) Eosinophils # (Auto) 0.5 x10^3/uL (0.0-0.7) Basophils # (Auto) 0.0 x10^3/uL (0.0-0.2) Sodium Level 142 mmol/L (136-145) Potassium Level 4.1 mmol/L (3.5-5.1) Chloride Level 111 mmol/L (98-107) Carbon Dioxide Level 23 mmol/L (21-32) Anion Gap 8 (6-14) Blood Urea Nitrogen 27 mg/dL (7-20) Creatinine 0.8 mg/dL (0.6-1.0) Estimated GFR (Cockcroft-Gault) 70.7 Glucose Level 156 mg/dL (70-99) Calcium Level 7.5 mg/dL (8.5-10.1) Test 01/01/20 12:12 Glucose (Fingerstick) 170 mg/dL (70-99) Micro Microbiology 12/28/19 Blood Culture - Preliminary, Resulted NO GROWTH AFTER 1 DAY Objective Assessment Generalized rash ? rocephin given PCN allergy - no mucosal breakdown - ? some better LE cellulitis R> Left Abx allergies - PCN - rash uncertain if had Amox/Bactrim - nausea H/o MSSA Yeast in groin and feet Abnormal UA - asymptomatic Cat exposure LE Lymphedema RASTA Morbid obesity Plan Plan of Care Ok to transfer on Zyvox for 6 more days Cont Diflucan 12/29 through 01/04 Elevation and local wound care D/w nursing SKIP FARIAS MD Jan 01, 2020 12:42
[2020-01-01] MEDS: diphenhydrAMINE HCL 25 MG CAPSULE PO PRN (13:45)
[2020-01-01 15:00] VITALS: BP 124/51
--- NOTE | 2020-01-01 16:45 | NUR ---
Discharge Note: LUPE ROCHA Discharge instructions and discharge home medications reviewed with Other facility and a copy given. All questions have been answered and understanding verbalized. Report given to Rufina at [facility]. The following instructions and handouts were given: information about follow up appointments, medications, skin issues, etc. Discontinued lines and drains: IV line in right upper arm removed, catheter tip intact. Patient discharged to [facility] with EMS transport coordinator, stretcher used for mobility to discharge vehicle.
--- NOTE | 2020-01-01 17:20 | PDOC3 ---
Discharge Summary Visit Information Date of Admission: Dec 28, 2019 Date of Discharge: Jan 01, 2020 Final Diagnosis sepsis acute Cellulitis right lower leg, ankle morbid obesity , BMI 44 Acquired lymphedema of lower extremity/ serum hypoalbumin, protein-caloric malnutrition CKD stage 3 Problems Medical Problems: (1) Acquired lymphedema of lower extremity Status: Acute (2) Cellulitis Status: Acute Brief Hospital Course Allergies Allergies Coded Allergies Type Severity Reaction Last Updated Verified Penicillins Allergy Intermediate Itching 12/28/19 Yes sulfamethoxazole Allergy Intermediate "UPSET STOMACH" 12/28/19 Yes trimethoprim Allergy Intermediate "UPSET STOMACH" 12/28/19 Yes Vital Signs Vital Signs Date Time Temp Pulse Resp B/P (MAP) Pulse Ox O2 Delivery O2 Flow Rate FiO2 01/01/20 16:19 100 Room Air 01/01/20 15:00 98.4 107 18 124/51 (75) 98.4 Lab Results Laboratory Tests Test 12/30/19 21:00 12/31/19 08:18 12/31/19 11:10 12/31/19 16:58 Glucose (Fingerstick) 168 mg/dL (70-99) 114 mg/dL (70-99) 164 mg/dL (70-99) 180 mg/dL (70-99) Test 12/31/19 20:25 01/01/20 04:40 01/01/20 08:13 01/01/20 12:12 Glucose (Fingerstick) 200 mg/dL (70-99) 143 mg/dL (70-99) 170 mg/dL (70-99) White Blood Count 5.3 x10^3/uL (4.0-11.0) Red Blood Count 3.30 x10^6/uL (3.50-5.40) Hemoglobin 10.8 g/dL (12.0-15.5) Hematocrit 31.4 % (36.0-47.0) Mean Corpuscular Volume 95 fL (79-100) Mean Corpuscular Hemoglobin 33 pg (25-35) Mean Corpuscular Hemoglobin Concent 35 g/dL (31-37) Red Cell Distribution Width 16.1 % (11.5-14.5) Platelet Count 149 x10^3/uL (140-400) Neutrophils (%) (Auto) 68 % (31-73) Lymphocytes (%) (Auto) 11 % (24-48) Monocytes (%) (Auto) 11 % (0-9) Eosinophils (%) (Auto) 10 % (0-3) Basophils (%) (Auto) 0 % (0-3) Neutrophils # (Auto) 3.6 x10^3/uL (1.8-7.7) Lymphocytes # (Auto) 0.6 x10^3/uL (1.0-4.8) Monocytes # (Auto) 0.6 x10^3/uL (0.0-1.1) Eosinophils # (Auto) 0.5 x10^3/uL (0.0-0.7) Basophils # (Auto) 0.0 x10^3/uL (0.0-0.2) Sodium Level 142 mmol/L (136-145) Potassium Level 4.1 mmol/L (3.5-5.1) Chloride Level 111 mmol/L (98-107) Carbon Dioxide Level 23 mmol/L (21-32) Anion Gap 8 (6-14) Blood Urea Nitrogen 27 mg/dL (7-20) Creatinine 0.8 mg/dL (0.6-1.0) Estimated GFR (Cockcroft-Gault) 70.7 Glucose Level 156 mg/dL (70-99) Calcium Level 7.5 mg/dL (8.5-10.1) Laboratory Tests Test 12/31/19 20:25 01/01/20 04:40 01/01/20 08:13 01/01/20 12:12 Glucose (Fingerstick) 200 mg/dL (70-99) 143 mg/dL (70-99) 170 mg/dL (70-99) White Blood Count 5.3 x10^3/uL (4.0-11.0) Red Blood Count 3.30 x10^6/uL (3.50-5.40) Hemoglobin 10.8 g/dL (12.0-15.5) Hematocrit 31.4 % (36.0-47.0) Mean Corpuscular Volume 95 fL (79-100) Mean Corpuscular Hemoglobin 33 pg (25-35) Mean Corpuscular Hemoglobin Concent 35 g/dL (31-37) Red Cell Distribution Width 16.1 % (11.5-14.5) Platelet Count 149 x10^3/uL (140-400) Neutrophils (%) (Auto) 68 % (31-73) Lymphocytes (%) (Auto) 11 % (24-48) Monocytes (%) (Auto) 11 % (0-9) Eosinophils (%) (Auto) 10 % (0-3) Basophils (%) (Auto) 0 % (0-3) Neutrophils # (Auto) 3.6 x10^3/uL (1.8-7.7) Lymphocytes # (Auto) 0.6 x10^3/uL (1.0-4.8) Monocytes # (Auto) 0.6 x10^3/uL (0.0-1.1) Eosinophils # (Auto) 0.5 x10^3/uL (0.0-0.7) Basophils # (Auto) 0.0 x10^3/uL (0.0-0.2) Sodium Level 142 mmol/L (136-145) Potassium Level 4.1 mmol/L (3.5-5.1) Chloride Level 111 mmol/L (98-107) Carbon Dioxide Level 23 mmol/L (21-32) Anion Gap 8 (6-14) Blood Urea Nitrogen 27 mg/dL (7-20) Creatinine 0.8 mg/dL (0.6-1.0) Estimated GFR (Cockcroft-Gault) 70.7 Glucose Level 156 mg/dL (70-99) Calcium Level 7.5 mg/dL (8.5-10.1) Brief Hospital Course Ms. Mayorga is a 69 old female, admit with leg weakness, rednes, cellulitis had drug reaction and arm rash, abx changed, she is still very weak, will need snu pt and ot and lymphedema therapy Discharge Information Condition at Discharge: Improved Follow Up: Weeks Disposition/Orders: D/C to Another Facility Scheduled Linezolid (Zyvox) 600 Mg Tablet, 600 MG PO BID for cellulitis, #14 Prescribed by: JAMES COREAS on 01/01/20 1115 Nystatin (Nystop) 60 Gm Powder, 1 JUAN TP BID for rash for 7 Days, #14 Prescribed by: JAMES COREAS on 01/01/20 1115 Pantoprazole Sodium (Pantoprazole Sodium ) 40 Mg Tablet.dr, 40 MG PO DAILYAC for GERD, #30 Ref 2 Prescribed by: JAMES COREAS on 01/01/20 1218 [Fluconazole] 100 MG TABLET, 100 MG PO DAILY for cellulitis, #7 Prescribed by: JAMES COREAS on 01/01/20 111 Scheduled PRN Diphenhydramine Hcl/Zinc Acet (Banophen Anti-Itch 2% Cream) 28 Gm Cream..g., 1 JUAN TP Q4HRS PRN for rash for 7 Days, #42 Prescribed by: JAMES COREAS on 01/01/201114 Guaifenesin (Guaifenesin) 100 Mg/5 Ml Liquid, 200 MG PO PRN Q4HRS PRN for COUGH, #20 Prescribed by: JAMES COREAS on 01/01/201114 JAMES COREAS MD Jan 01, 2020 17:20
--- NOTE | 2020-01-01 21:36 | CONS ---
DATE OF CONSULTATION: 01/01/2020 ATTENDING PHYSICIAN: Dr. Quevedo. DICTATING PHYSICIAN: Elieser Dyson MD REASON FOR CONSULTATION: The patient seen in pulmonary consultation at the request of Dr. Quevedo for abnormal chest x-ray. HISTORY OF PRESENT ILLNESS: The patient is a 69-year-old female morbid obese with chronic lymphedema of the lower extremities, previous cellulitis related to MSSA, had a 3-week history of increasing shortness of breath, over the lower extremities increasing redness. The patient was seen in consultation by the Infectious Disease Service, started on antibiotic. She had a reaction to the Rocephin. She is now off Rocephin, and on Zyvox. She had a chest x-ray, which revealed some linear atelectasis, possibly infiltrate in lower base. I was asked to see her in consultation. The patient denies any progression of her normal shortness of air. She is morbid obese individual does not really get around much. She denies any prior history of tobacco use. Currently, she has a cough, mostly related to reflux. No nausea, vomiting, diarrhea. She has had previous DVT in the past. PAST MEDICAL HISTORY: Positive for MSSA infection, cellulitis, morbid obesity, chronic lymphedema of the lower extremities. She has a prior history of leukemia, DVT. REVIEW OF SYSTEMS: CONSTITUTIONAL: No fever or chills. EYES: No change in visual acuity. HEENT: No nasal congestion or sore throat. PULMONARY: As indicated above. CARDIOVASCULAR: No chest pain. No pressure. GASTROINTESTINAL: No nausea, vomiting, diarrhea. GENITOURINARY: No dysuria or frequency. MUSCULOSKELETAL: No localized muscle aches or joint pains. SKIN: As indicated above. ALLERGIES: SHE NOW HAS A RASH RELATED TO ALLERGIES TO ROCEPHIN. SHE IS ALSO ALLERGIC TO PENICILLINS, SULFAMETHOXAZOLE, TRIMETHOPRIM. FAMILY HISTORY: Positive for obesity. SOCIAL HISTORY: She has no history of alcoholism or tobacco. CURRENT MEDICATIONS: List was reviewed. PHYSICAL EXAMINATION: GENERAL: Morbid obese individual in no significant respiratory distress. VITAL SIGNS: Stable. O2 saturation was greater than 92%. HEENT: Eyes, the sclerae were nonicteric. NECK: Jugular venous distention was not elevated. No lymphadenopathy. CHEST: Full expansion. LUNGS: Adequate air flow, no wheezes. CARDIOVASCULAR: Regular rate and rhythm with S1, S2, no S3. ABDOMEN: Obese. EXTREMITIES: Marked lymphedema, some skin rash related to her recent allergic reaction to Rocephin. LABORATORY DATA: Labs were reviewed. White count was normal. UA was noted. Electrolytes were noted. IMPRESSION: 1. Abnormal x-ray related to atelectasis. 2. Lower extremity cellulitis per Infectious Disease Service. Continue Zyvox. 3. Generalized rash related to PENICILLIN ALLERGY. 4. History of methicillin-susceptible Staphylococcus aureus. 5. Groin yeast. 6. Chronic lymphedema of the lower extremities. 7. Morbid obesity. PLAN: Pulmonary status appears to be compensated. No further workup needed. I understand that the patient is scheduled to transfer to a [place] [facility] facility, from a pulmonary standpoint of view, okay to transfer. I do appreciate the privilege in sharing in the patient's care. ELIESER DYSON MD DR: TERRY/chan JOB#: [id number] / [id number]
== END 2020-01-01 16:45 | DRG 871 ==
LOC: ER 09:02 → ED HOLD 12:23 → 4 NORTH 18:45
PROVIDERS: ADMIT Family Medicine; ATTEND Family Medicine
DX: A41.9 Sepsis, unspecified organism (principal); E43 Unspecified severe protein-calorie malnutrition; L03.115 Cellulitis of right lower limb; N17.9 Acute kidney failure, unspecified; J98.11 Atelectasis; L03.116 Cellulitis of left lower limb; Z68.43 Body mass index [BMI] 50.0-59.9, adult; E66.01 Morbid (severe) obesity due to excess calories; B37.2 Candidiasis of skin and nail; D64.9 Anemia, unspecified; E11.22 Type 2 diabetes mellitus with diabetic chronic kidney disease; G47.33 Obstructive sleep apnea (adult) (pediatric); I12.9 Hypertensive chronic kidney disease with stage 1 through stage 4 chronic kidney disease, or unspecified chronic kidney disease; K21.9 Gastro-esophageal reflux disease without esophagitis; K57.90 Diverticulosis of intestine, part unspecified, without perforation or abscess without bleeding; L27.0 Generalized skin eruption due to drugs and medicaments taken internally; N18.3 Chronic kidney disease, stage 3 (moderate); T36.0X5A Adverse effect of penicillins, initial encounter; Z79.82 Long term (current) use of aspirin; Z86.19 Personal history of other infectious and parasitic diseases; Z86.718 Personal history of other venous thrombosis and embolism; Z88.0 Allergy status to penicillin; Z88.1 Allergy status to other antibiotic agents; Z92.21 Personal history of antineoplastic chemotherapy; Z88.2 Allergy status to sulfonamides; Z88.8 Allergy status to other drugs, medicaments and biological substances
CPT/HCPCS: 36415; 71045; 80048; 80053; 81001; 82962; 83605; 85025; 87040; 87086; 93971; 94640; 94760; 96372; 99285; J0690; J0696; J1650; J7030; J7620; Q0163; 92610; 97110; 97530; 97535; G0378